=== PATIENT | female | born 1960 | race Caucasian/White ===

== ENCOUNTER 2023-06-06 06:08 | Day surgery (SDC) | payer BC ==
[~2023-06-06] VITALS: Ht 160 cm; Wt 72.5 kg
[~2023-06-06 06:08] MED LIST: ALBU90OI INH; QVAR REDIHALE10.6 G2 INH
--- NOTE | 2023-06-06 07:35 | NUR ---
06/06/[address] TO PERFORM BLOCK ON R SIDE. PT EDUCATED BY DR QUINONEZ ON THE BLOCK AND ANESTHESIA. CONSENTS ARE SIGNED. TIME OUT PERFORMED.
--- NOTE | 2023-06-06 10:17 | NUR ---
06/06/23 1017 DANIELLE PHAN ICE PACK GIVEN BEHIND NECK FOR HEADACHE. PT STATES SHE CAME IN W/ A HEADACHE AND THE NAUSEA IS FROM A GAS SMELL SHE KEEPS SMELLING MAKING HER NAUSEATED.
[2023-06-06 11:38] VITALS: BP 125/67
== END 2023-06-06 12:36 | disposition home or self-care (01) ==
LOC: ORSCSDS 06:08
PROVIDERS: Orthopaedic Surgery
PROC: 0RNJ4ZZ Release Right Shoulder Joint, Percutaneous Endoscopic Approach (ICD-10-PCS; principal; 2023-06-06 07:30)
DX: M75.41 Impingement syndrome of right shoulder (principal); M75.111 Incomplete rotator cuff tear or rupture of right shoulder, not specified as traumatic; J44.9 Chronic obstructive pulmonary disease, unspecified; Z87.891 Personal history of nicotine dependence; Z79.899 Other long term (current) drug therapy
CPT/HCPCS: A9270; C1713; J0171; J0690; J1100; J1790; J2250; J2405; J2704; J2765; J3010; J7120

== ENCOUNTER → 2025-05-15 | Outpatient (CLI) | payer OTHER ==
[2025-05-15 16:55] LABS: BASOPHILS ABSOLUTE AUTO 0.05 K/mm3 (0.00-0.23); BASOPHILS PERCENT AUTO 1 % (0-2); EOSINOPHILS ABSOLUTE AUTO 0.35 K/mm3 (0.00-0.68); EOSINOPHILS PERCENT AUTO 4 % (0-6); Hematocrit 34.8 % (33.0-51.0); Hemoglobin 11.0 g/dL (11.5-16.0); IMMATURE GRAN ABSOLUTE AUTO 0.05 K/mm3 (0.00-0.10); IMMATURE GRAN PERCENT AUTO 1 % (0-1); LYMPHOCYTES ABSOLUTE AUTO 0.72 K/mm3 (0.84-5.20); LYMPHOCYTES PERCENT AUTO 9 % (21-46); MONOCYTES ABSOLUTE AUTO 0.61 K/mm3 (0.16-1.47); MONOCYTES PERCENT AUTO 7 % (4-13); Mean Corpuscular HGB Conc 31.6 g/dL (31.5-36.5); Mean Corpuscular Volume 86 fL (80-100); NEUTROPHILS ABSOLUTE AUTO 6.69 K/mm3 (1.96-9.15); NEUTROPHILS PERCENT AUTO 79 % (41-73); NRBC ABSOLUTE 0.00 K/mm3 (0.00-0.02); NRBC Auto 0.0 /100 WBC (0.0-0.2); Platelet Count 415 K/mm3 (150-400); RDW Coefficient Variation 13.2 % (11.7-14.2); RDW Standard Deviation 41.7 fL (35.1-46.3)
[2025-05-15 17:13] LABS: Alanine Aminotransfer (ALT/SGP 20.0 U/L (12-78); Albumin, Blood 2.5 g/dL (3.4-5.0); Albumin/Globulin Ratio 0.7 (0.8-1.8); Anion Gap 9.0 mmol/L (3-11); Aspartate Aminotrans (AST/SGOT 24.0 U/L (12-37); Bilirubin, Total 0.2 mg/dL (0.1-1.0); Blood Urea Nitrogen 15.0 mg/dL (8-24); CO2, Blood 30.0 mmol/L (21-32); Calcium, Blood 8.5 mg/dL (8.5-10.1); Chloride, Blood 104.0 mmol/L (98-108); Creatinine, Blood 0.62 mg/dL (0.40-1.00); Globulin, Blood 3.7 g/dL (2.2-4.0); Glucose, Blood 96.0 mg/dL (70-99); Potassium, Blood 3.7 mmol/L (3.5-5.5); Sodium, Blood 139.0 mmol/L (136-145); Total Protein, Blood 6.2 g/dL (6.4-8.2)
== END ==
LOC: LAB SHORT 16:51 → LAB 16:51
DX: M79.89 Other specified soft tissue disorders (principal)
CPT/HCPCS: 80053; 83880; 85025

== ENCOUNTER 2025-05-31 09:35 | Emergency (ER) | payer OTHER ==
[~2025-05-31] VITALS: Ht 160 cm; Wt 72.1 kg
[2025-05-31 11:42] LABS: BASOPHILS ABSOLUTE AUTO 0.07 K/mm3 (0.00-0.23); BASOPHILS PERCENT AUTO 1 % (0-2); EOSINOPHILS ABSOLUTE AUTO 0.23 K/mm3 (0.00-0.68); EOSINOPHILS PERCENT AUTO 2 % (0-6); Hematocrit 38.6 % (33.0-51.0); Hemoglobin 12.0 g/dL (11.5-16.0); IMMATURE GRAN ABSOLUTE AUTO 0.20 K/mm3 (0.00-0.10); IMMATURE GRAN PERCENT AUTO 1 % (0-1); LYMPHOCYTES ABSOLUTE AUTO 0.47 K/mm3 (0.84-5.20); LYMPHOCYTES PERCENT AUTO 3 % (21-46); MONOCYTES ABSOLUTE AUTO 0.59 K/mm3 (0.16-1.47); MONOCYTES PERCENT AUTO 4 % (4-13); Mean Corpuscular HGB Conc 31.1 g/dL (31.5-36.5); Mean Corpuscular Volume 87 fL (80-100); NEUTROPHILS ABSOLUTE AUTO 13.58 K/mm3 (1.96-9.15); NEUTROPHILS PERCENT AUTO 90 % (41-73); NRBC ABSOLUTE 0.00 K/mm3 (0.00-0.02); NRBC Auto 0.0 /100 WBC (0.0-0.2); Platelet Count 601 K/mm3 (150-400); RDW Coefficient Variation 13.8 % (11.7-14.2); RDW Standard Deviation 43.9 fL (35.1-46.3)
[2025-05-31 12:01] LABS: C-REACTIVE PROTEIN, EXT RANGE 7.91 mg/dL (0.000-0.300)
[2025-05-31 12:05] LABS: Alanine Aminotransfer (ALT/SGP 56.0 U/L (12-78); Albumin, Blood 2.7 g/dL (3.4-5.0); Albumin/Globulin Ratio 0.7 (0.8-1.8); Anion Gap 8.0 mmol/L (3-11); Aspartate Aminotrans (AST/SGOT 53.0 U/L (12-37); Bilirubin, Total 0.3 mg/dL (0.1-1.0); Blood Urea Nitrogen 21.0 mg/dL (8-24); CO2, Blood 30.0 mmol/L (21-32); Calcium, Blood 8.7 mg/dL (8.5-10.1); Chloride, Blood 103.0 mmol/L (98-108); Creatinine, Blood 0.75 mg/dL (0.40-1.00); Globulin, Blood 3.7 g/dL (2.2-4.0); Glucose, Blood 105.0 mg/dL (70-99); Potassium, Blood 4.2 mmol/L (3.5-5.5); Sodium, Blood 137.0 mmol/L (136-145); Total Protein, Blood 6.4 g/dL (6.4-8.2)
[2025-05-31 18:37] LABS: Automated CSF RBC Count 0.002 M/mm3 (0-0); Automated CSF WBC Count 0.004 K/mm3 (0-5); RBC Count, CSF 2000 /mm3 (0-0); WBC Count, CSF 4 /mm3 (0-5)
[2025-05-31 18:47] LABS: Automated CSF WBC Count 0.001 K/mm3 (0-5)
[2025-05-31 18:54] LABS: WBC Count, CSF 1 /mm3 (0-5)
[2025-05-31 19:06] LABS: RBC Count, CSF 21 /mm3 (0-0)
[2025-05-31 20:55] LABS: Haemophilus Influenza Not Detected (NOT DETECT)
[2025-06-01 18:05] VITALS: BP 148/71
[2025-06-03 15:50] LABS: HIV 1,2 COMBO ANTIGEN/ANTIBODY Negative (Negative)
== END 2025-06-01 18:18 | disposition home or self-care (01) ==
LOC: ER 09:35
PROVIDERS: Emergency Medicine
DX: R53.1 Weakness (principal); R44.9 Unspecified symptoms and signs involving general sensations and perceptions; J45.909 Unspecified asthma, uncomplicated; Z88.5 Allergy status to narcotic agent; F17.210 Nicotine dependence, cigarettes, uncomplicated
CPT/HCPCS: 62270; 70450; 72156; 72157; 80053; 82550; 82945; 84157; 85025; 86140; 87070; 87205; 87389; 87483; 89051; 93971; 97162; 97530; 99285-25; A9270; A9579

== ENCOUNTER 2025-06-30 12:24 | Inpatient (IN) | payer OTHER ==
[~2025-06-30] VITALS: Ht 160 cm; Wt 76.7 kg
[2025-06-30] MEDS ORDERED: LORazepam 2 MG/ML 1ML Injection IV ONE (13:05)
[2025-06-30] MEDS ORDERED: NS 1,000 ML IV SCH ×2 (13:20→18:00)
[2025-06-30] MEDS ORDERED: Ondansetron HCl 2 MG / ML 2ML Vial IV ONE (13:25)
[2025-06-30 13:52] LABS: BASOPHILS ABSOLUTE AUTO 0.04 K/mm3 (0.00-0.23); BASOPHILS PERCENT AUTO 0 % (0-2); EOSINOPHILS ABSOLUTE AUTO 0.07 K/mm3 (0.00-0.68); EOSINOPHILS PERCENT AUTO 0 % (0-6); Hematocrit 39.4 % (33.0-51.0); Hemoglobin 12.6 g/dL (11.5-16.0); IMMATURE GRAN ABSOLUTE AUTO 0.27 K/mm3 (0.00-0.10); IMMATURE GRAN PERCENT AUTO 1 % (0-1); LYMPHOCYTES ABSOLUTE AUTO 0.81 K/mm3 (0.84-5.20); LYMPHOCYTES PERCENT AUTO 4 % (21-46); MONOCYTES ABSOLUTE AUTO 0.73 K/mm3 (0.16-1.47); MONOCYTES PERCENT AUTO 4 % (4-13); Mean Corpuscular HGB Conc 32.0 g/dL (31.5-36.5); Mean Corpuscular Volume 78 fL (80-100); NEUTROPHILS ABSOLUTE AUTO 17.58 K/mm3 (1.96-9.15); NEUTROPHILS PERCENT AUTO 90 % (41-73); NRBC ABSOLUTE 0.00 K/mm3 (0.00-0.02); NRBC Auto 0.0 /100 WBC (0.0-0.2); Platelet Count 403 K/mm3 (150-400); RDW Coefficient Variation 15.2 % (11.7-14.2); RDW Standard Deviation 42.5 fL (35.1-46.3)
[2025-06-30 13:57] LABS: Alanine Aminotransfer (ALT/SGP 21.0 U/L (12-78); Albumin, Blood 2.6 g/dL (3.4-5.0); Albumin/Globulin Ratio 0.8 (0.8-1.8); Anion Gap 9.0 mmol/L (3-11); Aspartate Aminotrans (AST/SGOT 20.0 U/L (12-37); Bilirubin, Total 0.6 mg/dL (0.1-1.0); Blood Urea Nitrogen 29.0 mg/dL (8-24); CO2, Blood 30.0 mmol/L (21-32); Calcium, Blood 8.8 mg/dL (8.5-10.1); Chloride, Blood 89.0 mmol/L (98-108); Creatinine, Blood 1.15 mg/dL (0.40-1.00); Globulin, Blood 3.3 g/dL (2.2-4.0); Glucose, Blood 140.0 mg/dL (70-99); Magnesium, Blood 2.2 mg/dL (1.6-2.4); Potassium, Blood 3.4 mmol/L (3.5-5.5); Sodium, Blood 125.0 mmol/L (136-145); Total Protein, Blood 5.9 g/dL (6.4-8.2)
[2025-06-30 13:57] LABS: Source, Urine Clean Catch
[2025-06-30 13:58] LABS: Prothrombin Time Results 11.4 Sec (9.7-11.5)
[2025-06-30] MEDS ORDERED: Ketorolac Tromethamine 15mg Vial IV ONE (14:05)
[2025-06-30 14:17] LABS: Bilirubin, Urine Neg (Neg); Color, Urine Yellow (P-Yellow); Glucose Qualitative, Urine Neg (Neg); Ketones, Urine 1+ (Neg); Leukocyte Esterase, Urine Neg (Neg); Protein, Urine 3+ (Neg); Specific Gravity, Urine 1.015 (1.003-1.022); Urobilinogen, Urine NORM (Normal)
[2025-06-30 14:28] LABS: Red Blood Cells, Urine 0-2 /hpf (0-2); White Blood Cells, Urine 0-2 /hpf (0-5)
[2025-06-30 14:45] LABS: Influenza A, PCR NEGATIVE (NEGATIVE); Influenza B, PCR NEGATIVE (NEGATIVE); Resp Syncytial Virus, PCR NEGATIVE (NEGATIVE); SARS-Cov-2 (COVID-19) PCR, MMC NEGATIVE (NEGATIVE)
[2025-06-30] MEDS ORDERED: HYDROCODONE-AC1 EA19 PO (14:50)
[2025-06-30] MEDS ORDERED: PREGABALIN50 MG PO (14:50)
[2025-06-30] MEDS ORDERED: FLUTICASONE-SAL12 GM (14:50)
[2025-06-30] MEDS ORDERED: NAPR220 PO (14:51)
[2025-06-30] MEDS ORDERED: [UNRECOGNIZED DRUG - OTHER] (14:52)
[2025-06-30] MEDS ORDERED: [UNRECOGNIZED DRUG - OTHER] (14:53)
[2025-06-30] MEDS ORDERED: Labetalol HCL 5 MG/ML 4ML Injection (Single Dose) IV ONE (16:10)
[2025-06-30 17:56] VITALS: BP 151/62
[2025-06-30] MEDS ORDERED: Polyethylene Glycol 3350 17 gm PO PRN (18:20)
[2025-06-30] MEDS ORDERED: ADVAIR HFA 230-28 GM INH (18:21)
[2025-06-30] MEDS ORDERED: HYDROcodone 5-APAP 325 TAB PO PRN (18:30)
[2025-06-30] MEDS ORDERED: Formoterol/Mometasone MDI 5/100 mcg 13 GM INH SCH (18:35)
[2025-06-30] MEDS ORDERED: Albuterol HFA200 ACT/6.7 GM INH INH PRN (18:50)
--- NOTE | 2025-06-30 19:11 | NUR ---
PT ADMITTED TO UNIT FROM ER. PT TRANSFERED TO HOSPITAL BED FROM [facility] VIA SLIDE SHEET. PT AWAKE AND ALERT, ORIENTED x3 WITH MINOR FORGETFULNESS. PT REPORTS N/T THROUGHOUT BODY, WEAKNESS T/O BUT WORSE ON R SIDE. ADMISSION COMPLETED. 2 RN SKIN CHECK COMPLETED. ORIENTED FAMILY AND PT TO CALL SYSTEM. EDUCATED RE NO SMOKING POLICY. NOTIFIED PROVIDER OF ARRIVAL TO MED FLOOR AND PT REPORTING 10/10 HEADACHE. MED REC COMPLETED - HYDROCODONE ADMINISTERED FOR HEADACHE AND GENERALIZED PAIN. HEATING PAD PROVIDED AND FAN. NS RUNNING 100 ML/HR. PT CURRENTLY RESTING PEACEFULLY IN BED WITH CALL LIGHT IN REACH, BED ALARM ON, AND FAMILY AT BEDSIDE. REPORT GIVEN TO NOC SHIFT RN.
[2025-06-30] MEDS ORDERED: Metoclopramide HCl 5MG / ML 2ML Vial IV PRN (19:50)
[2025-06-30 20:23] VITALS: BP 158/93
--- NOTE | 2025-07-01 05:14 | NUR ---
SHIFT SUMMARY: PT AOX2-3 WITH SOME CONFUSION AND SLUGGISHNESS. IS ABLE TO FOLLOW COMMANDS AND IS COOPERATIVE IN CARE. HAS GROWN MORE ALERT AND MORE EXPRESSIVE SINCE BEGINNING OF SHIFT. PT STARTED SHIFT WITH A LOT OF PAIN AND A LEG CRAMP. WELL VOMITING. PROVIDER NOTIFIED, MEDICATED PER EMR. PT IS TOLERATING MEDICATIONS WELL. IN BED RESTING, BED IN LOWEST POSITION, CALL LIGHT IN REACH. CONTINUING CARE.
[2025-07-01 05:15] VITALS: BP 138/89
[2025-07-01 06:59] LABS: Hematocrit 36.8 % (33.0-51.0); Hemoglobin 11.6 g/dL (11.5-16.0); Mean Corpuscular HGB Conc 31.5 g/dL (31.5-36.5); Mean Corpuscular Volume 79 fL (80-100); NRBC ABSOLUTE 0.00 K/mm3 (0.00-0.02); NRBC Auto 0.0 /100 WBC (0.0-0.2); Platelet Count 315 K/mm3 (150-400); RDW Coefficient Variation 15.6 % (11.7-14.2); RDW Standard Deviation 44.6 fL (35.1-46.3)
[2025-07-01 07:20] LABS: Alanine Aminotransfer (ALT/SGP 16.0 U/L (12-78); Albumin, Blood 2.1 g/dL (3.4-5.0); Albumin/Globulin Ratio 0.7 (0.8-1.8); Anion Gap 11.0 mmol/L (3-11); Aspartate Aminotrans (AST/SGOT 17.0 U/L (12-37); Bilirubin, Total 0.5 mg/dL (0.1-1.0); Blood Urea Nitrogen 26.0 mg/dL (8-24); CO2, Blood 27.0 mmol/L (21-32); Calcium, Blood 8.2 mg/dL (8.5-10.1); Chloride, Blood 95.0 mmol/L (98-108); Creatinine, Blood 1.24 mg/dL (0.40-1.00); Globulin, Blood 3.0 g/dL (2.2-4.0); Glucose, Blood 103.0 mg/dL (70-99); Potassium, Blood 2.8 mmol/L (3.5-5.5); Sodium, Blood 130.0 mmol/L (136-145); Total Protein, Blood 5.1 g/dL (6.4-8.2)
[2025-07-01 07:38] VITALS: BP 152/90
[2025-07-01] MEDS ORDERED: Enoxaparin 40 MG/0.4 ML SYR SC SCH (09:00)
--- NOTE | 2025-07-01 14:04 | NUR ---
PHYSICIAN NOTIFIED UNABLE TO GET AHOLD OF RESIDENT; THEREFORE, THIS RN CONTACTED ATTENDING. NOTIFIED ORDERS NEEDED PRIOR TO MRI FOR CLAUSTROPHOBIA - PROVIDER PUTTING IN ORDER. RN ALSO INFORMED DOUBLE LABS ORDERED - ATTENDING OK'D THIS RN TO CANCEL DUPLICATE LABS AND ORDER ST EVALUATION FOR IRU REFERRAL.
[2025-07-01 15:35] LABS: RA, SEMIQUANTITATIVE 64 IU/ml (<8); Rheumatoid Factor, Serum Positive (Negative)
[2025-07-01 15:36] LABS: RPR SCREEN with Reflex Non-reactive (Nonreactive)
[2025-07-01 15:49] VITALS: BP 176/87
[2025-07-01 15:51] VITALS: BP 166/83
--- NOTE | 2025-07-01 16:31 | NUR ---
PHYSICIAN NOTIFIED RN NOTIFIED DR. BLANK RE PT HR SUSTAINING 120-130'S AT REST. PT DENIES ANY OTHER SYMPTOMS - NO CHEST PAIN, DIZZINESS, SOB. BP REMAINS ELEVATED WELL. PER PROVIDER HE WILL ENTER ORDERS FOR TELE AND COME SPEAK WITH PT AND FAMILY REGARDING MRI RESULTS. PT CURRENTLY SLEEPING PEACEFULLY WITH BED IN LOWEST POSITION AND CALL LIGHT WITHIN REACH. DAUGHTER AT BEDSIDE.
[2025-07-01] MEDS ORDERED: Metoprolol Tartrate 1 MG/ML 5 ML VIAL IV PRN (16:45)
--- NOTE | 2025-07-01 16:50 | NUR ---
PER DR. FELI LYONS LOPRESSOR INJECTION ORDERED BY RESIDENT. TELE MONITORING AT THIS TIME ONLY. IF PT REMAINS SINUS TACHYCARDIA NO EKG NECESSARY, IF A P SUPERVISOR REPORTS CHANGES IN RHYTHM TO COMPLETE EKG.
[2025-07-01] MEDS ORDERED: Flumazenil 0.1 MG / ML 5ML Vial IV ONE (18:26)
[2025-07-01] MEDS ORDERED: Phenylephrine HCl 100 MCG/ML-NS 10MLSYR (1MG/10ML) IV ONE (18:26)
--- NOTE | 2025-07-01 18:39 | NUR ---
SHIFT SUMMARY NO ACUTE CHANGES, A/Ox4, WITH WEAKNESS REMAINING IN ALL EXTREMITIES BUT WORSE ON R SIDE. MRI COMPLETED. PROVIDER DISCUSSED RESULTS WITH PT AND PT DAUGHTER. IMAGING FAXED TO [facility] BY [employer] TE[employer]ER PER PROVIDER REQUEST. GOOD APPETITE THROUGHOUT SHIFT. TREATED FOR PAIN X1 WITH GOOD RESULTS. FLUIDS COMPLETED AND POTASSIUM INFUSION ALSO COMPLETED. PT CURRENTLY USING BSC WITH ASSISTANCE FROM SHUTDOWN PLANNER AND DAUGHTER PRESENT IN ROOM.
[2025-07-01 20:11] VITALS: BP 153/90
[2025-07-02 04:21] VITALS: BP 166/78
--- NOTE | 2025-07-02 05:19 | NUR ---
SHIFT SUMMARY: PT AOX3-4 CALLS APPROPRIATELY AND ABLE TO MAKE NEEDS KNOWN. STAND PIVOT TO BSC, NEEDS 2PA. NO COMPLAINTS OF PAIN OR CRAMPS THIS EVENING. STILL VERY WEAK AND HAS ISSUES WITH COORDINATION. TOLERATING MEDICATIONS WELL. NO ACUTE OVERNIGHT EVENTS. PT IN BED RESTING, BED IN LOWEST POSITION, CALL LIGHT IN REACH. CONTINUING CARE.
[2025-07-02 07:26] VITALS: BP 166/75
[2025-07-02 07:27] LABS: Hematocrit 34.7 % (33.0-51.0); Hemoglobin 11.5 g/dL (11.5-16.0); Mean Corpuscular HGB Conc 33.1 g/dL (31.5-36.5); Mean Corpuscular Volume 78 fL (80-100); NRBC ABSOLUTE 0.00 K/mm3 (0.00-0.02); NRBC Auto 0.0 /100 WBC (0.0-0.2); Platelet Count 328 K/mm3 (150-400); RDW Coefficient Variation 15.8 % (11.7-14.2); RDW Standard Deviation 44.1 fL (35.1-46.3)
[2025-07-02 07:51] LABS: Albumin, Blood 2.0 g/dL (3.4-5.0); Anion Gap 9 mmol/L (3-11); Blood Urea Nitrogen 30 mg/dL (8-24); CO2, Blood 25 mmol/L (21-32); Calcium, Blood 7.8 mg/dL (8.5-10.1); Chloride, Blood 97 mmol/L (98-108); Creatinine, Blood 1.38 mg/dL (0.40-1.00); Glucose, Blood 132 mg/dL (70-99); Phosphorus, Blood 3.3 mg/dL (2.5-4.9); Sodium, Blood 126 mmol/L (136-145)
[2025-07-02 07:57] LABS: Potassium, Blood 4.9 mmol/L (3.5-5.5)
[2025-07-02] MEDS ORDERED: Metoprolol Tartrate 1 MG/ML 5 ML VIAL IV PRN (08:00)
[2025-07-02 10:42] VITALS: BP 124/55
[2025-07-02] MEDS ORDERED: LORazepam 2 MG/ML 1ML Injection IV ONE (13:40)
[2025-07-02] MEDS ORDERED: FentaNYL Citrate 50 MCG/ML 2 ML Injection IV ONE (14:00)
[2025-07-02] MEDS ORDERED: FentaNYL Citrate 50 MCG/ML 2 ML Injection IV PRN (14:00)
--- NOTE | 2025-07-02 15:09 | NUR ---
THIS MORNING AFTER BREAKFAST PT WAS UP IN CHAIR AND DOING ORAL CARE WHEN NELSON VALENZUELA STATED SHE BECAME LIMP THROUGHOUT AND NOT VERBALLY RESPONSIVE. TOOK 3 PEOPLE TO GET PT BACK INTO BED, PHYSICIAN WAS AT BEDSIDE WITH CHARGE DIVINA WHITE I WAS IN ANOTHER ROOM. ONCE ABLE TO GO INTO ROOM PT WAS BACK IIN BED AND HOB ELEVATED SLIGHTLY. PT PUPILS WERE STILL EQUAL AND REACTIVE TO LIGHT. LIMBS TTHROUGHOUT WERE ALL EQUALLY WEAK AND SHE WAS NOT ABLE TO LIFT AGAINST GRAVITY. CAMPAIGN SPECIALIST CAME BY TO COMPLETE TEST. THEN REPEAT HEAD CT WAS COMPLETED, DR EDMOND NOTIFIED WHEN IMAGING RESULTS WERE IN, STATED HE WOULD BE BY TO SPEAK WITH FAMILY AT BEDSIDE.
[2025-07-02 15:13] LABS: COMPLEMENT COMPONENT 3 144 mg/dL (90-180); COMPLEMENT COMPONENT 4 3 mg/dL (10-40)
[2025-07-02 16:07] VITALS: BP 118/70
--- NOTE | 2025-07-02 16:53 | NUR ---
PER DR. BARRERA WHEN THEY CONSULTED WITH NEURO HER CURRENT ANTIPLATELET REGIMEN OF BABY ASPIRIN AND LOVENOX IS SUFFICIENT AND TO ESCALATE NEEDED. ALSO NOTIFIED DR. BARRERA OF PATIENTS PAIN/GENERALIZED UNCOMFORTABLNESS AND SHE WAS GOING TO ADD SOME TRAMADOL PRN. AWAITING ORDERS.
[2025-07-02 17:10] LABS: HOMOCYSTEINE,TOTAL 14 umol/L (0-15)
[2025-07-02 17:14] LABS: ALDOLASE 6.9 U/L (1.2-7.6)
--- NOTE | 2025-07-02 18:11 | NUR ---
NOTIFIED DR. BARRERA THIS EVENING THAT FAMILY WAS ASKING FOR RESULTS OF ECHO. DR. BARRERA STATED DR. PARKS WOULD BE UP TO DISCUSS RESULTS. DR. PARKS DID COME UP AND DISCUSS ECHO AND PRIOR IMAGING RESULTS WITH FAMILY THEY SEEMED TO STILL HAVE QUESTIONS.
[2025-07-02] MEDS ORDERED: HYDROcodone 5-APAP 325 TAB PO ONE (18:15)
[2025-07-02 19:48] VITALS: BP 138/65
[2025-07-02 23:06] LABS: ANTI-NUCLEAR AB ANA,IGG ELISA None Detected (None Detected)
[2025-07-02 23:59] VITALS: BP 118/67
[2025-07-03 03:32] VITALS: BP 100/59
--- NOTE | 2025-07-03 05:05 | NUR ---
SHIFT SUMMARY: PT AOX4 THOUGH STILL SLUGGISH AND SOFT SPEECH. CALLS APPROPRIATELY AND ABLE TO MAKE NEEDS KNOWN. SEEMS WEAKER AND LESS COORDINATED THAN THE DAY PRIOR. HAS HAD SOME SMALL LOOSE STOOLS BUT IS STILL CONTINENT. PT COMPLAINING OF WORSENING NERVE PAIN IN HER HANDS AND FEET. WELL MULTIPLE CRAMPS IN HER LEG. MEDICATED PER EMR. TOLERATING MEDICATIONS WELL. PT IS MOTIVATED TO GET BETTER BUT HER AND FAMILY ARE VERY ANXIOUS OVER PROGNOSIS. PT IN BED RESTING, BED IN LOWEST POSITION, CALL LIGHT IN REACH. CONTINUING CARE.
[2025-07-03 06:23] LABS: Hematocrit 31.0 % (33.0-51.0); Hemoglobin 10.0 g/dL (11.5-16.0); Mean Corpuscular HGB Conc 32.3 g/dL (31.5-36.5); Mean Corpuscular Volume 79 fL (80-100); NRBC ABSOLUTE 0.00 K/mm3 (0.00-0.02); NRBC Auto 0.0 /100 WBC (0.0-0.2); Platelet Count 360 K/mm3 (150-400); RDW Coefficient Variation 15.9 % (11.7-14.2); RDW Standard Deviation 45.7 fL (35.1-46.3)
[2025-07-03 07:03] LABS: Albumin, Blood 1.8 g/dL (3.4-5.0); Anion Gap 12 mmol/L (3-11); Blood Urea Nitrogen 36 mg/dL (8-24); CHOL/HDL RATIO 2.9; CO2, Blood 22 mmol/L (21-32); Calcium, Blood 7.8 mg/dL (8.5-10.1); Chloride, Blood 96 mmol/L (98-108); Cholesterol 76 mg/dL (50-200); Creatinine, Blood 1.38 mg/dL (0.40-1.00); Glucose, Blood 125 mg/dL (70-99); HDL Cholesterol 26 mg/dL (>39); LDL/HDL RATIO 0.4; Low Density Lipoprotein Chol 10 mg/dL (0-110); Magnesium, Blood 2.1 mg/dL (1.6-2.4); Phosphorus, Blood 4.0 mg/dL (2.5-4.9); Potassium, Blood 4.1 mmol/L (3.5-5.5); Sodium, Blood 126 mmol/L (136-145); Triglycerides 202 mg/dL (30-160); Very Low Density Lipoprot Chol 40 mg/dL (6-32)
[2025-07-03 07:35] VITALS: BP 95/62
[2025-07-03 09:37] VITALS: BP 116/59
--- NOTE | 2025-07-03 13:44 | NUR ---
BLADDER SCAN COMPLETED VOLUME SLIGHTLY GREATER THAN 800. DR LAWTON NOTIFIED AT 1345 AND ORDERED TO BLADDER SCAN Q6 AND TO STRAIGHT CATH FOR VOLUME GREATER THAN 300.
[2025-07-03 15:22] LABS: HOMOCYSTEINE,TOTAL 14 umol/L (0-15)
[2025-07-03] MEDS ORDERED: Lidocaine 2% Viscous Soln 20 ML,Nystatin 100,000 Unit/ml Susp 20 ML,Mag Hydrox/Al Hydro... MT PRN (17:00)
[2025-07-03 17:38] VITALS: BP 106/54
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
[2025-07-03] MEDS ORDERED: Lidocaine 2% Viscous Soln 20 ML,Nystatin 100,000 Unit/ml Susp 20 ML,Mag Hydrox/Al Hydro... MT SCH (21:00)
[2025-07-03 21:28] VITALS: BP 105/60
[2025-07-03 23:34] VITALS: BP 102/50
[2025-07-04 04:05] VITALS: BP 103/60
--- NOTE | 2025-07-04 05:30 | NUR ---
PT HAS SLEPT T/O THIS SHIFT WITH DAUGHTER AT BEDSIDE. NO ACUTE CHANGES NOTED AT THIS TIME.
[2025-07-04 05:39] LABS: Hematocrit 28.0 % (33.0-51.0); Hemoglobin 8.9 g/dL (11.5-16.0); Mean Corpuscular HGB Conc 31.8 g/dL (31.5-36.5); Mean Corpuscular Volume 80 fL (80-100); NRBC ABSOLUTE 0.00 K/mm3 (0.00-0.02); NRBC Auto 0.0 /100 WBC (0.0-0.2); Platelet Count 406 K/mm3 (150-400); RDW Coefficient Variation 16.3 % (11.7-14.2); RDW Standard Deviation 46.5 fL (35.1-46.3)
[2025-07-04 06:02] LABS: Albumin, Blood 1.7 g/dL (3.4-5.0); Anion Gap 10 mmol/L (3-11); Blood Urea Nitrogen 51 mg/dL (8-24); CO2, Blood 25 mmol/L (21-32); Calcium, Blood 7.7 mg/dL (8.5-10.1); Chloride, Blood 96 mmol/L (98-108); Creatinine, Blood 1.46 mg/dL (0.40-1.00); Glucose, Blood 110 mg/dL (70-99); Magnesium, Blood 2.2 mg/dL (1.6-2.4); Phosphorus, Blood 4.1 mg/dL (2.5-4.9); Potassium, Blood 4.6 mmol/L (3.5-5.5); Sodium, Blood 126 mmol/L (136-145)
[2025-07-04 07:24] VITALS: BP 106/61
[2025-07-04] MEDS ORDERED: NS 1,000 ML IV SCH (08:00)
[2025-07-04 11:28] VITALS: BP 119/72
--- NOTE | 2025-07-04 13:12 | NUR ---
1310 PER PRIMARY CARE RN, TELE MX HAD REPORTED 12 SEC RUN OF SVT'S AT 160. DR WOLFF NOTIFIED; NO NEW ORDERS. PT ASYMPTOMATIC.
--- NOTE | 2025-07-04 13:20 | NUR ---
1320 TELE MX CALLED TO REPORT PT CONVERTED FROM SR TO FLUTTER WITH RATE 104'S TO 160. DR WOLFF NOTIFIED AGAIN; "WILL MAKE SOME ADJUSTMENTS".
[2025-07-04] MEDS ORDERED: Metoprolol Tartrate 1 MG/ML 5 ML VIAL IV ONE (13:50)
[2025-07-04] MEDS ORDERED: Metoprolol Tartrate 1 MG/ML 5 ML VIAL IV PRN (13:50)
[2025-07-04 14:39] VITALS: BP 117/68
[2025-07-04 16:38] LABS: Anion Gap 10.0 mmol/L (3-11); Blood Urea Nitrogen 60.0 mg/dL (8-24); CO2, Blood 25.0 mmol/L (21-32); Calcium, Blood 8.1 mg/dL (8.5-10.1); Chloride, Blood 98.0 mmol/L (98-108); Creatinine, Blood 1.47 mg/dL (0.40-1.00); Ferritin, Serum 281.0 ng/mL (8-252); Glucose, Blood 117.0 mg/dL (70-99); Potassium, Blood 4.7 mmol/L (3.5-5.5); Sodium, Blood 128.0 mmol/L (136-145); Total Iron Binding Capacity 203.0 ug/dL (250-450)
[2025-07-04] MEDS ORDERED: HYDROmorphone HCl/Pf 1MG SYR IV PRN (18:00)
[2025-07-04] MEDS ORDERED: FentaNYL Citrate 50 MCG/ML 2 ML Injection IV ONE (18:45)
--- NOTE | 2025-07-04 18:54 | NUR ---
SHIFT SUMMARY PATIENT RESPONDS TO VERBAL STIMULI, UNABLE TO ANSWER QUESTIONS OR FOLLOW COMMANDS, SEE NIH FOR FURTHER STROKE EVALUATION. VSS, TELE IN PLACE, SINUS RHYTHM 90'S. ABDOMEN IS SOFT UPON PALPATION. RIVERO CATHETER IN PLACE, PATENT AND DRAINING TO GRAVITY. PATIENT SHOWING SIGNS OF SIGNIFICANT PAIN THIS SHIFT, GRIMACING AND CRYING OUT, PROVIDER CONTACTED, HYDROMORPHONE ORDERED. PER PATIENT FAMILY MEMBER, PATIENT ALLERGIC TO MORPHINE STATING SHE DEVELOPS HIVES AND HAS A HARD TIME BREATHING. PHARMACY CONTACTED REGARDING POTENTIAL ALTERNATIVES, FENTANYL OR TORADOL RECOMMENDED. DR. CLAYTON CONTACTED, NEW ORDERS RECEIVED, HYDROMORPHONE DC'd, FENTANYL ORDERS ADJUSTED. PATIENT IS UP IN BED, PILLOWS AND WEDGES APPLIED FOR OFFLOADING, PATIENT FAMILY AT BASELINE, EDUCATED ON USE OF CALL LIGHT.
[2025-07-04 19:40] VITALS: BP 105/59
[2025-07-04] MEDS ORDERED: Enoxaparin 80 MG/0.8 ML SYR SC SCH (21:00)
[2025-07-04] MEDS ORDERED: FentaNYL Citrate 50 MCG/ML 2 ML Injection IV SCH (23:00)
[2025-07-05] VITALS (33 sets, daily range): BP systolic 75–127; BP diastolic 28–78
[2025-07-05 03:44] LABS: Hematocrit 24.6 % (33.0-51.0); Hemoglobin 7.9 g/dL (11.5-16.0); Mean Corpuscular HGB Conc 32.1 g/dL (31.5-36.5); Mean Corpuscular Volume 81 fL (80-100); NRBC ABSOLUTE 0.00 K/mm3 (0.00-0.02); NRBC Auto 0.0 /100 WBC (0.0-0.2); Platelet Count 421 K/mm3 (150-400); RDW Coefficient Variation 16.5 % (11.7-14.2); RDW Standard Deviation 48.5 fL (35.1-46.3)
[2025-07-05 04:12] LABS: Albumin, Blood 1.8 g/dL (3.4-5.0); Anion Gap 9 mmol/L (3-11); Blood Urea Nitrogen 65 mg/dL (8-24); CO2, Blood 26 mmol/L (21-32); Calcium, Blood 7.7 mg/dL (8.5-10.1); Chloride, Blood 100 mmol/L (98-108); Creatinine, Blood 1.64 mg/dL (0.40-1.00); Glucose, Blood 97 mg/dL (70-99); Magnesium, Blood 2.3 mg/dL (1.6-2.4); Phosphorus, Blood 4.6 mg/dL (2.5-4.9); Potassium, Blood 4.5 mmol/L (3.5-5.5); Sodium, Blood 130 mmol/L (136-145)
[2025-07-05 05:44] LABS: MMA S/P,VITAMIN B12 STATUS 0.34 umol/L (0.00-0.40)
--- NOTE | 2025-07-05 06:27 | NUR ---
SHIFT SUMMARY PT DAUGHTER AT BEDSIDE THIS SHIFT. PT OPENS EYES SPONTANEOUSLY. SHE ANSWERED SOME YES/NO QUESTIONS AT START OF SHIFT, NOW UNABLE TO ANSWER QUESTIONS OR FOLLOW COMMANDS. RIGHT SIDE DEFICIT. LIFT TO TRANSFER PER PHYSICAL THERAPY, TOLERATES REPOSITIONS WELL. SINUS TACH LOW 100s, ALL OTHER VSS. RIVERO CATH PATENT AND DRAINING TO GRAVITY. DAUGHTER REPORTS ALLERGY TO MORPHINE, TREATING CHRONIC PAIN WITH FENTANYL 25 Q4. UNABLE TO COMPLETE NIH AT START OF SHIFT DUE TO RECENT FENTANYL DOSE. WILL COMPLETE NIH WITH ONCOMING RN DURING REPORT. BED LOCKED IN LOWEST POSTITION, CALL LIGHT IN REACH.
[2025-07-05] MEDS ORDERED: NS 1,000 ML IV SCH (07:00)
[2025-07-05] MEDS ORDERED: Pantoprazole Sodium 40 MG Injection IV SCH (09:00)
[2025-07-05] MEDS ORDERED: Sod Ferric Gluc Complx/Sucrose 125 MG in NS 100 ML IV SCH (09:00)
[2025-07-05 09:17] LABS: Hematocrit 25.2 % (33.0-51.0); Hemoglobin 8.1 g/dL (11.5-16.0)
--- NOTE | 2025-07-05 09:59 | NUR ---
AM UPDATE: ASSUMED CARE OF PT AT 0730. ON ASSESSMENT WITH NOTABLE BILATERAL FACIAL DROOP. PT UNABLE TO COMMUNICATE NEEDS, UNABLE TO FOLLOW COMMANDS. LEFT GAZE NOTED. PT UNABLE TO MOVE BILATERAL LOWER EXTREMITIES. UNABLE TO MOVE R. SIDE EXTREMITY. COUGH AND GAG TESTED. PT WITH SLIGHT GAG, NO COUGH. MD UPDATED ON NEW FINDINGS, STAT CT IMAGING ORDERED. PT WITH NIH SCORE OF 27. BLACK STOOL NOTED IN ATTENDS. OCCULT STOOL ORDERED AND PENDING.
[2025-07-05 10:41] LABS: Stool Occult Blood Guaiac 1 Pos (Neg)
--- NOTE | 2025-07-05 12:14 | NUR ---
UPDATE: PT WAS ABLE TO RESOPND WITH YES/NO PRIOR, PT UNABLE TO VERBALLY RESPOND CURRENTLY. PT LEANING OVER TO THE LEFT WITH GAZE, DOES NOT TRACK WITH CONVERSATION. BLE AND RIGHT SIDE REMAIN FALCCID. PT ABLE TO LIFT LEFT ARM IN AIR, BEGINNING TO DO IT LESS OFTEN. BLOOD PRESSURE TRENDING DOWN MAP REMAINS >65, HR 100-110s. RR 31, AFEBRILE. OTHER VSS. DIGITAL MARKETING STRATEGIST CAME TO BEDSIDE AND DISCUSSED THE CURRENT SITUATION TO PATIENTS FAMILY. PT CLEARED FROM CARDIOLOGY STAND POINT. GI CONSTULTED AND SPOKE WITH PATIENTS FAMILY REGARDING EGD FOR GI BLEED. DAUGHTER STATED PATIENT WOULD WANT THE PROCEDURE DONE. PT CURRENTLY LYING IN BED, FAMILY AT BEDSIDE.
--- NOTE | 2025-07-05 14:29 | NUR ---
ROUNDED ON PT. DISCUSSED WITH CASE WITH PROVIDER AND BSRN. PATIENTS DAUGHTER AT BEDSIDE. DISCUSSED GOC, DISCUSSE CODE STATUS. DAUGHTER IS WANTING TO DO EVERYTHING AT THIS TIME. PROVIDED COPY OF HARD CHOICES FOR LOVING PEOPLE AND ENCOURAGED TO READ SECTIONS ABOUT CODE STATUS AND ARTIFICIAL FEEDINGS. UPDATED PROVIDER AND BSRN
[2025-07-05] MEDS ORDERED: Metoclopramide HCl 5MG / ML 2ML Vial IV ONE (14:55)
--- NOTE | 2025-07-05 15:27 | NUR ---
UPDATE: PT LEFT TO DAY SURGERY FOR EGD [facility]IA [facility] AT APPROX 1515. VSS. FAMILY NOTIFIED.
[2025-07-05] MEDS ORDERED: Midazolam HCL 1 MG/ML 5MLVIAL ONE (15:50)
[2025-07-05] MEDS ORDERED: Benzocaine Oral Spray 0.5ML UD ONE (15:51)
[2025-07-05] MEDS ORDERED: Flumazenil 0.1 MG / ML 5ML Vial ONE (16:15)
[2025-07-05 16:45] LABS: BASOPHILS ABSOLUTE AUTO 0.08 K/mm3 (0.00-0.23); BASOPHILS PERCENT AUTO 1 % (0-2); EOSINOPHILS ABSOLUTE AUTO 0.17 K/mm3 (0.00-0.68); EOSINOPHILS PERCENT AUTO 1 % (0-6); Hematocrit 22.8 % (33.0-51.0); Hemoglobin 7.1 g/dL (11.5-16.0); IMMATURE GRAN ABSOLUTE AUTO 0.61 K/mm3 (0.00-0.10); IMMATURE GRAN PERCENT AUTO 4 % (0-1); LYMPHOCYTES ABSOLUTE AUTO 1.39 K/mm3 (0.84-5.20); LYMPHOCYTES PERCENT AUTO 10 % (21-46); MONOCYTES ABSOLUTE AUTO 1.18 K/mm3 (0.16-1.47); MONOCYTES PERCENT AUTO 8 % (4-13); Mean Corpuscular HGB Conc 31.1 g/dL (31.5-36.5); Mean Corpuscular Volume 82 fL (80-100); NEUTROPHILS ABSOLUTE AUTO 10.96 K/mm3 (1.96-9.15); NEUTROPHILS PERCENT AUTO 76 % (41-73); NRBC ABSOLUTE 0.00 K/mm3 (0.00-0.02); NRBC Auto 0.0 /100 WBC (0.0-0.2); Platelet Count 443 K/mm3 (150-400); RDW Coefficient Variation 16.6 % (11.7-14.2); RDW Standard Deviation 49.5 fL (35.1-46.3)
[2025-07-05] MEDS ORDERED: NS 500 ML IV ONE (16:48)
--- NOTE | 2025-07-05 17:15 | NUR ---
BLOOD TRANSFUSION PT ARRIVED TO ICU 15 VIA GURNEY AT APPROXIMATELY 1715, ESCORTED BY OR STAFF. PT HAD 1 UNIT OF PRBC'S INFUSING AT GRAVITY TO PIV IN L FOOT WHICH WAS PLACED IN OR. PRE-INFUSION CHECKLIST HAD NOT BEEN ENTERED IN TRANSFUSION SECTION OF PT'S ELECTRONIC CHART, PAPER FORM c START OF INFUSION VS OBTAINED IN OR ARE ATTACHED TO PT'S CHART. VS OBTAINED IN ICU AT 1725 WERE: BP 112/58 MAP OF 72, HR 112 O2 SATURATION 97% ON 10 LPM O2 VIA OXIMASK, LS COARSE c EXPIRATORY WHEEZES. SEE NOC SHIFT RN NOTES FOR FURTHER TRANSFUSION DOCUMENTATION.
--- NOTE | 2025-07-05 17:15 | NUR ---
07/05/[address] ASHLEY, SEE ANESTHESIA RECORDS.
--- NOTE | 2025-07-05 17:43 | NUR ---
TRANSFER NOTE: PT TRANSFERED TO ICU FOLLOWING EGD PROCEDURE. REPORT GIVEN AT BEDSIDE TO DENVER MURCIA. FAMILY UPDATED AND BROUGHT TO ICU. ALL BELONGINGS WITH PT AND FAMILY.
[2025-07-05] MEDS ORDERED: Ipratropium/Albuterol SulF 2.5-0.5MG/3 ML Amp INH SCH (18:00)
--- NOTE | 2025-07-05 18:06 | NUR ---
ASSUMED CARE / SHIFT SUMMARY PT ARRIVED TO UNIT FROM OR VIA GURNEY, ESCORTED BY OR STAFF, AT APPROXIMATELY 1715. ON 10LPM VIA OXIMASK, O2 SATURATION AT 100%, TITRATED DOWN TOLERATED TO 5LPM O2 WITH CURRENT SATURATION AT 97%. PRBC INFUSING TO L FOOT. CONTINUOUS CARDIAC MONITORING IN PLACE SHOWS STACH, BP STABLE c MAP > 65. LUNG SOUNDS ARE COARSE WITH EXPIRATORY WHEEZES, DR. WOLFF AWARE - SEE NEW ORDERS. SMALL SMEAR IN ATTENDS c DARK RED BLOOD, RIVERO PATENT AND DRAINING TO GRAVITY. PIV TO L FOOT AND PIV TO LWR INFUSING PRBC'S. WILL CONTINUE TO MONITOR AND REPORT TO ONCOMING RN.
--- NOTE | 2025-07-05 20:59 | NUR ---
UPDATE TRANSFUSION FINISHED @2054.
[2025-07-05] MEDS ORDERED: CefTRIAXone Sodium 1,000 MG in NS 100 ML IV SCH (21:00)
[2025-07-05 23:22] LABS: Hematocrit 28.6 % (33.0-51.0); Hemoglobin 9.2 g/dL (11.5-16.0)
[2025-07-06] VITALS (74 sets, daily range): BP systolic 79–144; BP diastolic 37–91
[2025-07-06 00:02] LABS: Anion Gap 11.0 mmol/L (3-11); Blood Urea Nitrogen 71.0 mg/dL (8-24); CO2, Blood 23.0 mmol/L (21-32); Calcium, Blood 8.0 mg/dL (8.5-10.1); Chloride, Blood 104.0 mmol/L (98-108); Creatinine, Blood 1.62 mg/dL (0.40-1.00); Glucose, Blood 112.0 mg/dL (70-99); Potassium, Blood 4.7 mmol/L (3.5-5.5); Sodium, Blood 133.0 mmol/L (136-145)
[2025-07-06 03:22] LABS: BASOPHILS ABSOLUTE AUTO 0.08 K/mm3 (0.00-0.23); BASOPHILS PERCENT AUTO 1 % (0-2); EOSINOPHILS ABSOLUTE AUTO 0.16 K/mm3 (0.00-0.68); EOSINOPHILS PERCENT AUTO 1 % (0-6); Hematocrit 28.9 % (33.0-51.0); Hemoglobin 9.2 g/dL (11.5-16.0); IMMATURE GRAN ABSOLUTE AUTO 0.56 K/mm3 (0.00-0.10); IMMATURE GRAN PERCENT AUTO 4 % (0-1); LYMPHOCYTES ABSOLUTE AUTO 0.97 K/mm3 (0.84-5.20); LYMPHOCYTES PERCENT AUTO 7 % (21-46); MONOCYTES ABSOLUTE AUTO 0.89 K/mm3 (0.16-1.47); MONOCYTES PERCENT AUTO 6 % (4-13); Mean Corpuscular HGB Conc 31.8 g/dL (31.5-36.5); Mean Corpuscular Volume 83 fL (80-100); NEUTROPHILS ABSOLUTE AUTO 11.29 K/mm3 (1.96-9.15); NEUTROPHILS PERCENT AUTO 81 % (41-73); NRBC ABSOLUTE 0.00 K/mm3 (0.00-0.02); NRBC Auto 0.0 /100 WBC (0.0-0.2); Platelet Count 466 K/mm3 (150-400); RDW Coefficient Variation 17.2 % (11.7-14.2); RDW Standard Deviation 52.1 fL (35.1-46.3)
[2025-07-06 03:38] LABS: Albumin, Blood 1.9 g/dL (3.4-5.0); Anion Gap 13 mmol/L (3-11); Blood Urea Nitrogen 72 mg/dL (8-24); CO2, Blood 22 mmol/L (21-32); Calcium, Blood 8.0 mg/dL (8.5-10.1); Chloride, Blood 104 mmol/L (98-108); Creatinine, Blood 1.60 mg/dL (0.40-1.00); Glucose, Blood 110 mg/dL (70-99); Phosphorus, Blood 5.9 mg/dL (2.5-4.9); Potassium, Blood 4.6 mmol/L (3.5-5.5); Sodium, Blood 134 mmol/L (136-145)
--- NOTE | 2025-07-06 05:58 | NUR ---
SHIFT SUMMARY PATIENT OPENS EYES BUT DOES NOT TRACK ANYTHING. PATIENT LIKES HEAD TO LEFT AND STARES OFF TO UPPER LEFT SIDE. AFERIBLE THROUGH OUT SHIFT. RIGHT SIDE DEFICIT UPPER AND LOWER EXTERMITIES. MOVES LEFT ARM UP AND DOWN. BILATERAL LUNGS COARSE AND WHEEZES THROUGH OUT. HR 100-100'S AND SBP 100-110'S. PATIENBT ON ROOM AIR SATTING HIGH 90'S. PATIENT HAS RIVERO DRAINING TO GRAVITY AND HAS DEPENDS ON FOR INCOT OF BM. PATIENT WAS RECIEVING BLOOD WHEN SHIFT STARTED AND TOLERATED WELL THE LAST 200CC, SEE TRANSFUSION DOCUMENTATION. PATIENT HAS LEFT FOOT AND LEFT AC PERIPHERAL (CHARGE NURSE AWARE). CALL LIGHT WITHIN REACH.
[2025-07-06] MEDS ORDERED: NS 1,000 ML IV SCH (07:00)
--- NOTE | 2025-07-06 07:15 | NUR ---
ASSUMED CARE OF PATIENT AT APPROXIMATELY 0700. BEDISDE REPORT RECEIVED FROM DIVINA AGGARWAL. PT AWAKE IN BED, OPENING EYES BUT NOT TRACKING OR MAKING PURPOSEUL MOVEMENTS, APHASIC. CONTINUOUS CARDIAC MONITORING IN PLACE. ON RA c O2 SATURATION > 92%. RIVERO PATENT AND DRAINING TO GRAVITY. PIV TO L FOOT AND LAC SALINE LOCKED. SEE SHIFT ASSESSMENT FOR FULL DETAILS.
[2025-07-06] MEDS ORDERED: Metoprolol Tartrate 1 MG/ML 5 ML VIAL IV PRN (08:15)
[2025-07-06] MEDS ORDERED: FentaNYL Citrate 50 MCG/ML 2 ML Injection IV ONE (13:05)
[2025-07-06 13:19] LABS: Hematocrit 27.7 % (33.0-51.0); Hemoglobin 8.9 g/dL (11.5-16.0)
--- NOTE | 2025-07-06 17:14 | NUR ---
SHIFT SUMMARY THROUGHOUT SHIFT PT HAS BEGUN TRACKING PEOPLE WITH HER EYES. WHEN ASKED TO OPEN HER MOUTH FOR ORAL CARE SHE DOES SO, BUT DOES NOT FOLLOW OTHER COMMANDS. AFEBRILE. SCHEDULED FENTANYL GIVEN ORDERED. CONTINUOUS CARDIAC MONITORING IN PLACE SHOWS STACH, 2 DOSES OF PRN METOPROLOL GIVEN INDICATED c GOOD BENEFIT. BP STABLE c MAP > 65. ON RA c O2 SATURATION > 92%. 2 SMALL BM'S THIS SHIFT, DARK IN COLOR. RIVERO PATENT AND DRAINING TO GRAVITY. SERIAL H+H's ORDERED PER GI. PG TO MEAGHAN INFUSING NS AT 100 mL/HR. PIV TO L FOOT SALINE LOCKED. FAMILY AT BEDSIDE, UPDATED ON PLAN OF CARE. WILL CONTINUE TO MONITOR AND REPORT TO ONCOMING RN.
[2025-07-06] MEDS ORDERED: FentaNYL Citrate 50 MCG/ML 2 ML Injection IV PRN ×2 (17:35→20:00)
[2025-07-06 18:30] LABS: Hematocrit 27.7 % (33.0-51.0); Hemoglobin 8.9 g/dL (11.5-16.0)
[2025-07-07] VITALS (53 sets, daily range): BP systolic 96–147; BP diastolic 31–109
[2025-07-07 00:12] LABS: Hematocrit 26.9 % (33.0-51.0); Hemoglobin 8.6 g/dL (11.5-16.0)
[2025-07-07] MEDS ORDERED: Ipratropium/Albuterol SulF 2.5-0.5MG/3 ML Amp INH PRN (02:00)
[2025-07-07 03:17] LABS: Hematocrit 27.1 % (33.0-51.0); Hemoglobin 8.8 g/dL (11.5-16.0); Mean Corpuscular HGB Conc 32.5 g/dL (31.5-36.5); Mean Corpuscular Volume 84 fL (80-100); NRBC ABSOLUTE 0.00 K/mm3 (0.00-0.02); NRBC Auto 0.0 /100 WBC (0.0-0.2); Platelet Count 537 K/mm3 (150-400); RDW Coefficient Variation 17.2 % (11.7-14.2); RDW Standard Deviation 52.7 fL (35.1-46.3)
[2025-07-07 04:04] LABS: Magnesium, Blood 2.5 mg/dL (1.6-2.4)
[2025-07-07 04:23] LABS: Alanine Aminotransfer (ALT/SGP 30.0 U/L (12-78); Albumin, Blood 1.9 g/dL (3.4-5.0); Albumin/Globulin Ratio 0.7 (0.8-1.8); Anion Gap 10.0 mmol/L (3-11); Aspartate Aminotrans (AST/SGOT 35.0 U/L (12-37); Bilirubin, Total 0.2 mg/dL (0.1-1.0); Blood Urea Nitrogen 64.0 mg/dL (8-24); CO2, Blood 24.0 mmol/L (21-32); Calcium, Blood 7.9 mg/dL (8.5-10.1); Chloride, Blood 109.0 mmol/L (98-108); Creatinine, Blood 1.57 mg/dL (0.40-1.00); Globulin, Blood 2.9 g/dL (2.2-4.0); Glucose, Blood 120.0 mg/dL (70-99); Potassium, Blood 4.2 mmol/L (3.5-5.5); Sodium, Blood 139.0 mmol/L (136-145); Total Protein, Blood 4.8 g/dL (6.4-8.2)
--- NOTE | 2025-07-07 05:28 | NUR ---
SHIFT SUMMARY PATIENT IS ALERT AND WILL TRACK NURSE WITH EYES. PATIENT DID SHAKE HEAD FOR YES WHEN ASKED IF IN PAIN. PATIENT WILL YELL OUT IN MOANING SOUNDS. PATIENT HAS REIGHT SIDE DEFICITS IN UPPER ND LOWER EXTERMITIES AND LEFT LOWER EXTERMITIE. PATIENT DOES MOVE LEFT ARM AND HEAD AROUND. PATIENT AFERIBLE THROUGH SHIFT. LUNGS SOUND BILATERAL CLEAR IN UPPER LOBES AND DIMINISHED IN LOER LOBES. PATIENT ON RA SATTING 95%. HR IN THE 100'S AND SBP 110-120'S. PATIENT HAS RIVERO DRAINING TO GRAVITY. HAS POWERGLIDE IN RIGHT UPPER RM AND A LEFT FOOT PERIPHERAL BOTH SALINE LOCKED. CALL LIGHT WITH IN REACH.
[2025-07-07 08:34] LABS: MMA S/P,VITAMIN B12 STATUS 0.4 umol/L (0.00-0.40)
[2025-07-07 09:17] LABS: Hematocrit 27.3 % (33.0-51.0); Hemoglobin 8.6 g/dL (11.5-16.0)
--- NOTE | 2025-07-07 09:19 | NUR ---
ASSUMPTION OF CARE ASSUMED CARE OF PATIENT AT APPROX 0700. PATIENT ALERT, SMILES, AND TRACKS PEOPLE WITH EYES. PATIENT LAST NIH 24. HR SINUS TACH/VENT TRIGEMINY IN THE 110S. BP STABLE WITH MAPS >65. PATIENT ON RA WITH SPO2 >95%. RIVERO PATENT AND DRAINING YELLOW URINE TO GRAVITY. PATIENT MEDICATED WITH FENTANYL FOR PAIN PER EMAR. FAMILY AT BEDSIDE SPOKE WITH DR HULL ABOUT PLAN OF CARE AND GOING TO [facility] IN [facility]. CALL LIGHT NEAR. BED IN LOWEST POSITION.
[2025-07-07] MEDS ORDERED: FentaNYL Citrate 50 MCG/ML 2 ML Injection IV PRN (10:15)
[2025-07-07 11:42] LABS: Anti-Xa UFH, PHA Monitoring <0.10 IU/mL; Prothrombin Time Results 11.3 Sec (9.7-11.5)
[2025-07-07] MEDS ORDERED: FentaNYL Citrate 50 MCG/ML 2 ML Injection IV SCH (12:00)
[2025-07-07] MEDS ORDERED: Heparin Sodium,Porcine/0.5 NS 500 ML IV SCH (12:05)
--- NOTE | 2025-07-07 17:39 | NUR ---
SHIFT SUMMARY PATIENT ALERT AND FOLLOWS SOME COMMANDS. PATIENT TRACKS PEOPLE IN THE ROOM AND SMILES AT FAMILY. PATIENT TOLD BROTHER "I LOVE YOU" TODAY. LAST NIH 24. HR SINUS TACH IN THE 100S-110S. BP STABLE WITH MAPS >65. PATIENT ON ROOM AIR WITH SPO2 >94%. TEMP RIVERO PATENT AND DRAINING YELLOW URINE TO GRAVITY. PATIENT HAD INCONT BM X1 TODAY. PATIENT WAS MEDICATED PER EMAR WITH FENTANYL FOR PAIN. PG TO MEAGHAN PATENT AND INFUSING HEPARIN GTT PER EMAR. PIV TO LEFT FOOT PATENT AND SALINE LOCKED. PATIENT UP TO CHAIR WITH LIFT TODAY, TOLERATED WELL. FAMILY AT BEDSIDE UPDATED ON PLAN OF CARE. CALL LIGHT IN REACH. BED IN LOWEST POSITION. DR ASTORGA SAW PATIENT AND PLANS TO DO A PEG TUBE MED WEEK.
[2025-07-07] MEDS ORDERED: Dose Adjust by Pharmacy XX STA (18:25)
[2025-07-08] VITALS (10 sets, daily range): BP systolic 138–163; BP diastolic 58–88
[2025-07-08 01:38] LABS: BASOPHILS ABSOLUTE AUTO 0.06 K/mm3 (0.00-0.23); BASOPHILS PERCENT AUTO 0 % (0-2); EOSINOPHILS ABSOLUTE AUTO 0.10 K/mm3 (0.00-0.68); EOSINOPHILS PERCENT AUTO 1 % (0-6); Hematocrit 27.1 % (33.0-51.0); Hemoglobin 8.5 g/dL (11.5-16.0); IMMATURE GRAN ABSOLUTE AUTO 0.59 K/mm3 (0.00-0.10); IMMATURE GRAN PERCENT AUTO 4 % (0-1); LYMPHOCYTES ABSOLUTE AUTO 0.91 K/mm3 (0.84-5.20); LYMPHOCYTES PERCENT AUTO 6 % (21-46); MONOCYTES ABSOLUTE AUTO 0.99 K/mm3 (0.16-1.47); MONOCYTES PERCENT AUTO 7 % (4-13); Mean Corpuscular HGB Conc 31.4 g/dL (31.5-36.5); Mean Corpuscular Volume 84 fL (80-100); NEUTROPHILS ABSOLUTE AUTO 11.79 K/mm3 (1.96-9.15); NEUTROPHILS PERCENT AUTO 82 % (41-73); NRBC ABSOLUTE 0.00 K/mm3 (0.00-0.02); NRBC Auto 0.0 /100 WBC (0.0-0.2); Platelet Count 543 K/mm3 (150-400); RDW Coefficient Variation 17.7 % (11.7-14.2); RDW Standard Deviation 53.4 fL (35.1-46.3)
[2025-07-08 01:53] LABS: Anion Gap 11.0 mmol/L (3-11); Blood Urea Nitrogen 56.0 mg/dL (8-24); CO2, Blood 23.0 mmol/L (21-32); Calcium, Blood 8.1 mg/dL (8.5-10.1); Chloride, Blood 112.0 mmol/L (98-108); Creatinine, Blood 1.39 mg/dL (0.40-1.00); Glucose, Blood 110.0 mg/dL (70-99); Magnesium, Blood 2.5 mg/dL (1.6-2.4); Potassium, Blood 3.7 mmol/L (3.5-5.5); Sodium, Blood 142.0 mmol/L (136-145)
[2025-07-08] MEDS ORDERED: Dose Adjust by Pharmacy XX STA ×3 (02:29→16:38)
--- NOTE | 2025-07-08 06:21 | NUR ---
PT UPDATE: REPORT GIVEN TO ROPE CUTTER GENNARO WHO WILL ASSUME CARE OF PT ONCE PT IS TRANSFERRED TO PCU RM 13.
--- NOTE | 2025-07-08 06:36 | NUR ---
PT UPDATE: PT TRANSFERRED TO PCU RM 13 VIA BED BY CAREN RN AND JASEN MURCIA. ALL OF PTS BELONGINGS TRANSFERRED W/PT. PTS DAUGHTER NOTIFIED OF TRANSFER.
--- NOTE | 2025-07-08 07:00 | NUR ---
TRANSFER PT ARRIVED IN PCU 13 FROM ICU AT 0630.PT TRANSFEERED TO BED VIA LIFT SHEET.PT WIDE AWAKE,NONVERBAL.BREATHING EVEN AND NONLABORED.NO S/S OF PAIN/DISCOMFORT NOTED.HEPARIN CONTINUED ORDERED,2RN VERIFIED THE INFUSION RATE PER PROTOCOL.HEPARIN INFUSING AT 14UNITS/KG/HR,16.8ML/HR,WEIGHT 60KG ORDERED BY PHARMACY.RIVERO IN PLACE,PATENT,DRAINING YELLOW URINE.CALL LIGHT AND PT'S ITEMS WITHIN REACH.BED ALARM IN USE FOR FALL PREVENTION SAFETY.MONITORING ONGOING PER PROTOCOL.
[2025-07-08 08:02] LABS: HEPATITIS B SURFACE ANTIBODY <3.10 IU/L; HEPATITIS BE ANTIBODY Negative (Negative); HEPATITIS BE ANTIGEN Negative (Negative)
[2025-07-08] MEDS ORDERED: TPN Consult Notification XX ONE ×2 (09:35→11:40)
[2025-07-08 11:49] LABS: HEPATITIS A ANTIBODY,IGM Negative (Negative)
[2025-07-08 13:01] LABS: PROTHROMBIN F2 G20210A VARIANT Negative; PT PCR SPECIMEN Whole Blood
[2025-07-08 15:19] LABS: FACTOR V LEIDEN F5 R506Q MUTAT Negative; FACV SPECIMEN Whole Blood
[2025-07-08] MEDS ORDERED: Parenteral Electolytes 40 ML,Potassium Phosphate Dibasic 30 MM,Multivitamins 10 ML,ZINC... IV SCH (17:00)
--- NOTE | 2025-07-08 17:48 | NUR ---
REPORT RECEIVED FROM KAMLA Brenner AND CARE ASSUMED. NO CURRENT NEEDS OR CONCERNS NOTED @ THIS TIME. PT IS MOSTLY NON-VERBAL, BUT WILL RESPOND TO SIMPLE QUESTIONS. SHE HAS BEEN TALKING MORE THIS AFTERNOON THAN SHE HAD BEEN PREVIOUSLY. GOOD MOVEMENT TO THE RUE. DAUGHTER @ BEDSIDE. BED IN LOW POSITION, BED ALARM ON, CALL LIGHT AND PERSONAL BELONGINGS IN REACH.
[2025-07-08] MEDS ORDERED: HYDROcodone 5-APAP 325 TAB PO PRN (19:40)
[2025-07-08] MEDS ORDERED: Clarify Drug Order XX ONE (23:30)
[2025-07-09] VITALS (7 sets, daily range): BP systolic 120–160; BP diastolic 70–76
[2025-07-09] MEDS ORDERED: HydrALAZINE HCl 20 MG / ML 1ML Vial IV PRN (01:10)
[2025-07-09 04:28] LABS: BASOPHILS ABSOLUTE AUTO 0.08 K/mm3 (0.00-0.23); BASOPHILS PERCENT AUTO 1 % (0-2); EOSINOPHILS ABSOLUTE AUTO 0.22 K/mm3 (0.00-0.68); EOSINOPHILS PERCENT AUTO 1 % (0-6); Hematocrit 24.0 % (33.0-51.0); Hemoglobin 7.8 g/dL (11.5-16.0); IMMATURE GRAN ABSOLUTE AUTO 1.00 K/mm3 (0.00-0.10); IMMATURE GRAN PERCENT AUTO 7 % (0-1); LYMPHOCYTES ABSOLUTE AUTO 0.99 K/mm3 (0.84-5.20); LYMPHOCYTES PERCENT AUTO 7 % (21-46); MONOCYTES ABSOLUTE AUTO 0.97 K/mm3 (0.16-1.47); MONOCYTES PERCENT AUTO 6 % (4-13); Mean Corpuscular HGB Conc 32.5 g/dL (31.5-36.5); Mean Corpuscular Volume 84 fL (80-100); NEUTROPHILS ABSOLUTE AUTO 12.02 K/mm3 (1.96-9.15); NEUTROPHILS PERCENT AUTO 79 % (41-73); NRBC ABSOLUTE 0.00 K/mm3 (0.00-0.02); NRBC Auto 0.0 /100 WBC (0.0-0.2); Platelet Count 549 K/mm3 (150-400); RDW Coefficient Variation 17.8 % (11.7-14.2); RDW Standard Deviation 53.4 fL (35.1-46.3)
[2025-07-09 04:48] LABS: Alanine Aminotransfer (ALT/SGP 22 U/L (12-78); Albumin, Blood 1.7 g/dL (3.4-5.0); Albumin/Globulin Ratio 0.6 (0.8-1.8); Anion Gap 7 mmol/L (3-11); Aspartate Aminotrans (AST/SGOT 23 U/L (12-37); Bilirubin, Total 0.2 mg/dL (0.1-1.0); Blood Urea Nitrogen 52 mg/dL (8-24); CO2, Blood 26 mmol/L (21-32); Calcium, Blood 7.7 mg/dL (8.5-10.1); Chloride, Blood 106 mmol/L (98-108); Creatinine, Blood 1.19 mg/dL (0.40-1.00); Globulin, Blood 2.9 g/dL (2.2-4.0); Glucose, Blood 146 mg/dL (70-99); Magnesium, Blood 2.3 mg/dL (1.6-2.4); Phosphorus, Blood 2.6 mg/dL (2.5-4.9); Potassium, Blood 3.9 mmol/L (3.5-5.5); Sodium, Blood 135 mmol/L (136-145); Total Protein, Blood 4.6 g/dL (6.4-8.2); Triglycerides 155 mg/dL (30-160)
[2025-07-09] MEDS ORDERED: Dose Adjust by Pharmacy XX STA (05:59)
--- NOTE | 2025-07-09 06:13 | NUR ---
SHIFT SUMMARY PATIENT IS MOSTLY NON VERBAL, DOES RESPOND TO YES/NO QUESTIONS OCCASIONALLY. SINUS TACH 110s. PT HYPERTENSIVE THIS SHIFT, [id number]. CALL PLACED TO MD FOX, ORDERS PLACED FOR PRN HYDRALAZINE IF SBP SUSTAINS >160, HAS NOT NEEDED COVERAGE THIS SHIFT. SPO2> 95% ON ROOM AIR, NO SIGNS OF RESPIRATORY DISTRESS. NO BM THIS SHIFT. RIVERO CATH PATENT AND DRAINING TO GRAVITY. PT PAIN WAS NOT CONTROLLED WITH Q4 FENTANYL, CALL PLACED TO MD FOX WHO STARTED HOME MEDS PREGABALIN AND NORCO. PAIN IS NOW WELL CONTROLLED. WILL GIVE REPORT TO ONCOMING RN. BED LOCKED IN LOWEST POSITION, CALL LIGHT WITHIN REACH.
--- NOTE | 2025-07-09 09:00 | NUR ---
PT IS ALERT BUT NOT ABLE TO ASSESS TO WHAT LEVEL. SHE IS NOT TALKING MUCH, JUST SIMPLE YES AND NO ANSWERS. SHE IS ON RA W/O2 SATS > 92%. SHE IS A 2 PERSON ASSIST FOR TURNS IN BED AND A LIFT FOR OOB. SHE HAS A RIVERO IN PLACE THAT IS DRAINING TO GRAVITY. HEP GTT AND PPN RUNNING PER EMAR. NO NEEDS OR CONCERNS NOTED @ THIS TIME. BED IN LOW POSITION, CALL LIGHT AND PERSONAL BELONGINGS IN REACH.
[2025-07-09 14:29] LABS: HEPATITIS C AB CIA INTERP Negative (Negative); HEPATITIS C ANTIBODY CIA INDEX 0.04 IV
[2025-07-09] MEDS ORDERED: Magnesium Hydroxide Conc 10 ML UDC PO PRN (14:30)
[2025-07-09] MEDS ORDERED: Labetalol HCL 5 MG/ML 4ML Injection (Single Dose) IV PRN (16:35)
--- NOTE | 2025-07-09 18:32 | NUR ---
PT SAT UP IN RECLINER FOR MOST OF THIS SHIFT. HEP GTT AND PPN DISCONTINUED. PT BACK IN BED W/NO NEEDS OR CONCERNS NOTED @ THIS TIME. BED IN LOW POSITION, CALL LIGHT AND PERSONAL BELONGINGS IN REACH.
--- NOTE | 2025-07-09 21:00 | NUR ---
ASSUMED CARE OF PATIENT AT 1900. PATIENT'S DAUGHTER AT BEDSIDE FOR REPORT. PT IS ALERT, UNABLE TO ASSESS ORIENTATION. SHE ANSWERS OCCASIONAL YES/NO QUESTIONS AND OCCASIONALLY RESPONDS IN SIMPLE PHRASES TO FAMILY MEMBERS. SINUS TACH 110s, BP STABLE. SPO2 >95% ON ROOM AIR. ABDOMEN IS SOFT UPON PALPATION. RIVERO CATH PATENT AND DRAINING TO GRAVITY. PATIENT DENIES PAIN AT THIS TIME. BED LOCKED IN LOWEST POSITION, CALL LIGHT WITHIN REACH.
[2025-07-10 04:36] LABS: Hematocrit 24.6 % (33.0-51.0); Hemoglobin 7.8 g/dL (11.5-16.0); Mean Corpuscular HGB Conc 31.7 g/dL (31.5-36.5); Mean Corpuscular Volume 84 fL (80-100); NRBC ABSOLUTE 0.00 K/mm3 (0.00-0.02); NRBC Auto 0.0 /100 WBC (0.0-0.2); Platelet Count 485 K/mm3 (150-400); RDW Coefficient Variation 18.3 % (11.7-14.2); RDW Standard Deviation 55.2 fL (35.1-46.3)
[2025-07-10 05:21] LABS: BAND PERCENT MAN 6 % (0-8); BASOPHILS ABSOLUTE MAN 0.00 K/mm3 (0.00-0.23); BASOPHILS PERCENT MAN 0 % (0-2); EOSINOPHILS ABSOLUTE MAN 0.00 K/mm3 (0.00-0.68); EOSINOPHILS PERCENT MAN 0 % (0-6); LYMPHOCYTES ABSOLUTE MAN 0.39 K/mm3 (0.84-5.20); LYMPHOCYTES PERCENT MAN 3 % (21-46); METAMYELOCYTE ABSOLUTE MAN 0.13 K/mm3 (0.00-0.00); METAMYELOCYTE PERCENT MAN 1 % (0-0); MONOCYTES ABSOLUTE MAN 0.78 K/mm3 (0.16-1.47); MONOCYTES PERCENT MAN 6 % (4-13); MYELOCYTE ABSOLUTE MAN 0.26 K/mm3 (0.00-0.00); MYELOCYTE PERCENT MAN 2 % (0-0); NEUTROPHILS ABSOLUTE MAN 11.51 K/mm3 (1.96-9.15); SEG NEUTROPHILS PERCENT MAN 82 % (41-73)
[2025-07-10 05:29] LABS: Anion Gap 9.0 mmol/L (3-11); Blood Urea Nitrogen 44.0 mg/dL (8-24); CO2, Blood 24.0 mmol/L (21-32); Calcium, Blood 7.7 mg/dL (8.5-10.1); Chloride, Blood 102.0 mmol/L (98-108); Creatinine, Blood 1.19 mg/dL (0.40-1.00); Glucose, Blood 104.0 mg/dL (70-99); Magnesium, Blood 2.1 mg/dL (1.6-2.4); Phosphorus, Blood 2.7 mg/dL (2.5-4.9); Potassium, Blood 4.0 mmol/L (3.5-5.5); Sodium, Blood 131.0 mmol/L (136-145)
--- NOTE | 2025-07-10 06:08 | NUR ---
SHIFT SUMMARY SEE PREVIOUS NOTE. PATIENT ANSWERING YES/NO QUESTIONS MORE FREQUENTLY, OBEYS OCCASIONAL SIMPLE COMMANDS. SINUS TACH 110-120s, ALL OTHER VSS. RIVERO CATH PATENT AND DRAINING TO GRAVITY. NO ACUTE EVENTS THIS SHIFT. BED LOCKED IN LOWEST POSITION AND CALL LIGHT WITHIN REACH. WILL GIVE REPORT TO ONCOMING RN.
[2025-07-10] MEDS ORDERED: CefTRIAXone Sodium 1,000 MG in NS 100 ML IV SCH (09:00)
[2025-07-10] MEDS ORDERED: Octreotide Acetate 500 MCG in NS 250 ML IV SCH (10:25)
[2025-07-10 11:09] VITALS: BP 148/83
[2025-07-10 12:36] LABS: Hematocrit 25.0 % (33.0-51.0); Hemoglobin 8.0 g/dL (11.5-16.0)
[2025-07-10 13:37] LABS: JO-1 HISTIDYL-TRNA SYNTHET,IGG 2 AU/mL (0-40); SMITH/RNP (ENA) AB, IGG 2 Units (0-19); SSA-52 (RO52) (ENA) AB, IGG 2 AU/mL (0-40); SSA-60 (RO60) (ENA) AB, IGG 1 AU/mL (0-40)
[2025-07-10] MEDS ORDERED: Heparin Sodium,Porcine/0.5 NS 500 ML IV SCH (14:00)
[2025-07-10 14:11] LABS: Anti-Xa UFH, PHA Monitoring 0.56 IU/mL
--- NOTE | 2025-07-10 15:41 | NUR ---
SHIFT SUMMARY: PT HAS HAD NO NEW NEURO CHANGES THIS SHIFT. HAS BEEN RESTING WELL BETWEEN ACTIVITIES. WAS IN ALOT OF PAIN THIS AM BUT HAS DENIED ANY PAIN SINCE. WAS ABLE TO WORK WITH THERAPY. ATE ALL MEAL WITHOUT ANY COMPLICATIONS. DAUGHTER AT BEDSIDE MOST OF THE DAY. NO SIGNIFICANT EVENTS HAPPENED DURING THIS SHIFT.
--- NOTE | 2025-07-10 17:39 | NUR ---
TRANSFER OF CARE/SHIFT SUMMARY: ASSUMED CARE AT APPROX 1600, PT ALERT AND ABLE TO COMMUNICATE WITH MINIMAL VERBAL RESPONSES SUCH ANSWERING YES OR BY GESTURE SUCH RAISE YOUR HAND IF YOU ARE IN PAIN, ETC. PT'S DAUGHTER ALMA AT BEDSIDE, PHYSICAL THERAPY WORKED WITH PT, SITTING UP IN BED EATING DINNER WITH AIDE, PT AND DAUGHTER ORIENTED TO CALL LIGHT.
[2025-07-10 20:07] VITALS: BP 136/66
[2025-07-10] MEDS ORDERED: Dose Adjust by Pharmacy XX STA (21:45)
[2025-07-10 23:07] VITALS: BP 108/66
[2025-07-11] VITALS (7 sets, daily range): BP systolic 108–135; BP diastolic 57–78
[2025-07-11 04:07] LABS: Hematocrit 25.2 % (33.0-51.0); Hemoglobin 8.1 g/dL (11.5-16.0); Mean Corpuscular HGB Conc 32.1 g/dL (31.5-36.5); Mean Corpuscular Volume 85 fL (80-100); NRBC ABSOLUTE 0.02 K/mm3 (0.00-0.02); NRBC Auto 0.1 /100 WBC (0.0-0.2); Platelet Count 470 K/mm3 (150-400); RDW Coefficient Variation 18.3 % (11.7-14.2); RDW Standard Deviation 55.8 fL (35.1-46.3)
[2025-07-11 04:30] LABS: Anion Gap 9.0 mmol/L (3-11); Blood Urea Nitrogen 35.0 mg/dL (8-24); CO2, Blood 24.0 mmol/L (21-32); Calcium, Blood 7.4 mg/dL (8.5-10.1); Chloride, Blood 101.0 mmol/L (98-108); Creatinine, Blood 1.32 mg/dL (0.40-1.00); Glucose, Blood 125.0 mg/dL (70-99); Magnesium, Blood 2.0 mg/dL (1.6-2.4); Phosphorus, Blood 3.4 mg/dL (2.5-4.9); Potassium, Blood 4.4 mmol/L (3.5-5.5); Sodium, Blood 130.0 mmol/L (136-145)
[2025-07-11 04:44] LABS: BAND PERCENT MAN 6 % (0-8); BASOPHILS ABSOLUTE MAN 0.14 K/mm3 (0.00-0.23); BASOPHILS PERCENT MAN 1 % (0-2); EOSINOPHILS ABSOLUTE MAN 0.56 K/mm3 (0.00-0.68); EOSINOPHILS PERCENT MAN 4 % (0-6); LYMPHOCYTES % ATYPICAL MANUAL 1 % (0-0); LYMPHOCYTES ABSOLUTE MAN 0.84 K/mm3 (0.84-5.20); LYMPHOCYTES PERCENT MAN 5 % (21-46); METAMYELOCYTE ABSOLUTE MAN 0.42 K/mm3 (0.00-0.00); METAMYELOCYTE PERCENT MAN 3 % (0-0); MONOCYTES ABSOLUTE MAN 0.14 K/mm3 (0.16-1.47); MONOCYTES PERCENT MAN 1 % (4-13); MYELOCYTE ABSOLUTE MAN 0.56 K/mm3 (0.00-0.00); MYELOCYTE PERCENT MAN 4 % (0-0); NEUTROPHILS ABSOLUTE MAN 11.45 K/mm3 (1.96-9.15); SEG NEUTROPHILS PERCENT MAN 75 % (41-73)
[2025-07-11] MEDS ORDERED: Clarify Drug Order XX ONE (05:15)
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
[2025-07-11] MEDS ORDERED: Dose Adjust by Pharmacy XX STA (11:22)
[2025-07-11 12:28] LABS: Stool Occult Blood Guaiac 1 Pos (Neg)
--- NOTE | 2025-07-11 17:33 | NUR ---
SHIFT SUMMARY PT A/OX2 AND COOPERATIVE OF CARE. PT HAS DIFFICULTY EXPRESSING NEEDS DUE TO LIMITED SPEECH. PT ABLE TO ANSWER YES/NO QUESTIONS APPROPIATELY. PT ATTEMPTS TO FOLLOW COMMANDS WITH MOVING EXTREMITIES. PT ABLE TO FOLLOW COMMANDS OF OPENING MOUTH FOR ORAL CARE. PT HR REMAINED IN THE 100'S THIS SHIFT. OTHER VSS THROUGHOUT SHIFT WITH O2 SATS IN THE 90'S ON RA. PT DID NOT ENDORSE CHEST PAIN/PRESSUE. PT DID NOT ENDORSE SOB/DYSPNEA THROUGHOUT SHIFT. RIVERO REMAINED IN PLACE, DRAINING TO GRAVITY, YELLOW URINE NOTED. HEP GTT CONTINUED RUNNING PER EMAR.
--- NOTE | 2025-07-11 21:31 | NUR ---
TRANSFER NOTE REPORT GIVEN TO DIVINA DODD ON MEDICAL FLOOR. PT TRANSFERRED TO [facility] AT APPROX 2125 VIA HOSPITAL BED WITH ALL BELONGINGS. IN A SINUS RHYTHM, ON TELEMETRY, HR 100'S. ON RA, SATS ABOVE 90%.
--- NOTE | 2025-07-11 21:48 | NUR ---
TRANSFER NOTE HANDOFF RECEIVED FROM TIMBER BUCKER KVNG. PT TRANSFERED TO FLOOR VIA GURNEY. PT ORIENTED TO UNIT. PERSONAL BELONGINGS WITH PT. HEPARIN DRIP INFUSING ORDERED. TELEMETRY IN PLACE. TELEMETRY: TACH @ 101 BPM.
--- NOTE | 2025-07-12 04:31 | NUR ---
SHIFT SUMMARY TRANSFERED FROM PCU THIS SHIFT. FULL CODE. ADMITTED FOR CVA. EXPRESSIVE APHASIA REMAINS. BLE FLACCID, RIGHT ARM FLACCID. LIFT PATIENT. STRICT I&O'S. RIVERO IN PLACE. ON RA. POWERGLIDE IN RUE. HEPARIN GTT INFUSING, PHARMACY MANAGED. TELEMETRY: TACH @ 101 BPM. PLAN IS FOR PLACEMENT IN REHAB FACILITY WHEN BED CAN BE FOUND. LOOSE BLACK STOOLS REPORTED, GUAIAC+. HX AFIB, ESOPH VARICES, SVT-POST ABLATION. GI CONSULTED. PALLIATIVE CARE IS CONSULTED.
[2025-07-12 05:32] LABS: Hematocrit 26.1 % (33.0-51.0); Hemoglobin 8.3 g/dL (11.5-16.0); Platelet Count 497 K/mm3 (150-400)
[2025-07-12 05:57] LABS: Anion Gap 10.0 mmol/L (3-11); Blood Urea Nitrogen 38.0 mg/dL (8-24); CO2, Blood 24.0 mmol/L (21-32); Calcium, Blood 7.6 mg/dL (8.5-10.1); Chloride, Blood 99.0 mmol/L (98-108); Creatinine, Blood 1.42 mg/dL (0.40-1.00); Glucose, Blood 108.0 mg/dL (70-99); Potassium, Blood 4.4 mmol/L (3.5-5.5); Sodium, Blood 129.0 mmol/L (136-145)
[2025-07-12] MEDS ORDERED: Dose Adjust by Pharmacy XX STA (06:02)
[2025-07-12 07:36] VITALS: BP 137/73
--- NOTE | 2025-07-12 08:02 | NUR ---
DR. JAMIE DELA CRUZ- SURGEON ROUNDING. STONE WAS TO BIG TO REMOVED, STENT PLACED SUCCESSFULLY. PT WILL DISCHARGE HOME BASED ON HCP DECISION. PT WILL HAVE OUT PATIENT PROCEDURE TO REMOVE STONE AFTER DISCHARGE. RIVERO CAN COME OUT TODAY AND PT CAN RETURN TO NORMAL DIET TOLERATED.
[2025-07-12] MEDS ORDERED: NS 250 ML IV PRN (10:50)
[2025-07-12 12:26] VITALS: BP 98/58
[2025-07-12 16:35] VITALS: BP 130/67
--- NOTE | 2025-07-12 18:00 | NUR ---
SHIFT SUMMARY PATIENT ALERT AND INTERACTIVE ABLE. PATIENT ABLE TO RESPOND WITH 1-4 WORD RESPONSES. PATIENT ABLE TO MOVE L ARM WITH GROSS MOTOR AND SLIGHT WITH RIGHT. PATIENT ABLE TO DO SOME MOVEMENT WITH RIGHT. PATIENT AND FAMILY EDUCATED ON THE IMPORTANCE FOR PATIENT TO DO MUCH POSSIBLE FOR HERSELF. PATIENT WILLING TO MAKE AN EFFORT WITH EXERCISES PROVIDED BY NURSE. THERAPY UNABLE TO WORK WITH PATIENT TODAY BECAUSE PATIENT WAS RESTING. PATIENT UP TO CHAIR THIS EVENING WITH LIFT FOR DINNER. PATIENT ADVANCED TO A SOFT BITE SIZE MEALS AND THIN LIQUIDS. PATIENT CONTINUES TO NEED ASSISTANCE WITH MEALS AND SITTING UPRIGHT FOR ASPIRATION RISK. FAMILY LOOKING INTO REHAB FACILITIES AND REFERALS SENT. PATIENT STARTED ON PO BLOOD THINNERS TODAY AND HEPARIN DC'D.
[2025-07-12 20:21] VITALS: BP 113/58
[2025-07-13 00:52] VITALS: BP 97/63
--- NOTE | 2025-07-13 05:06 | NUR ---
SHIFT SUMMARY A&OX2 TO SELF AND SITUATION. NOT ABLE TO CALL APPROPRIATELY SO PT HAS BEEN CHECKED ON FREQUENTLY. SHE CONTINUES TO HAVE MORE DEFICT IN RIGHT ARM THAN LEFT BUT IS ABLE TO MOVE HER FINGERS ON HER RIGHT HAND. HAVE ENCOURAGED PT USE HER HANDS AND MOVE THEM MUCH POSSIBLE. PT HAS BEEN REPOSITIONED EVERY 2 HOURS. SHE HAS A RIVERO CATHETER PATENT AND DRAINING TO GRAVITY. SHE DID HAVE A BM DURING SHIFT THAT WAS SOFT AND VERY DARK. SHE DID HAVE INCREASED PAIN AT BEGINNING OF SHIFT AND WAS REPOSITIONED AND MEDICATED PER EMAR. THIS APPEARED TO HAVE HELPED PT APPEARED RELAXED AND WAS ABLE TO REST FOR A GOOD PORTION OF THE NIGHT. SHE IS CURRENTLY SLEEPING IN HER BED AT LOWEST POSITION WITH CALL LIGHT WITHIN REACH.
[2025-07-13 05:12] VITALS: BP 104/62
[2025-07-13 07:22] VITALS: BP 118/57
[2025-07-13 08:08] LABS: Hematocrit 25.9 % (33.0-51.0); Hemoglobin 8.3 g/dL (11.5-16.0)
[2025-07-13 08:31] LABS: Anion Gap 9.0 mmol/L (3-11); Blood Urea Nitrogen 39.0 mg/dL (8-24); CO2, Blood 25.0 mmol/L (21-32); Calcium, Blood 7.8 mg/dL (8.5-10.1); Chloride, Blood 99.0 mmol/L (98-108); Creatinine, Blood 1.41 mg/dL (0.40-1.00); Glucose, Blood 102.0 mg/dL (70-99); Potassium, Blood 4.2 mmol/L (3.5-5.5); Sodium, Blood 129.0 mmol/L (136-145)
[2025-07-13 11:58] VITALS: BP 110/60
[2025-07-13 15:44] VITALS: BP 117/60
--- NOTE | 2025-07-13 17:24 | NUR ---
SHIFT SUMMARY PT MEDICATED WITH NORCO TWICE THIS SHIFT. SEE EMAR. PT UP TO CHAIR USING MECHANICAL LIFT. PT WORKED WITH PHYSICAL THERAPY TODAY. REPOSITIONED Q2H TODAY. BED BATH COMPLETED TODAY. RIVERO REMOVED TODAY. NO VOID NOTED YET. NO OTHER ACUTE CHANGES IN ASSESSMENT AT THIS TIME. VS REVIEWED. CALL LIGHT IN REACH.
[2025-07-13 19:53] VITALS: BP 104/59
[2025-07-14] VITALS (8 sets, daily range): BP systolic 91–117; BP diastolic 52–87
[2025-07-14 05:50] LABS: Hematocrit 24.6 % (33.0-51.0); Hemoglobin 8.0 g/dL (11.5-16.0)
[2025-07-14 06:18] LABS: Anion Gap 9.0 mmol/L (3-11); Blood Urea Nitrogen 43.0 mg/dL (8-24); CO2, Blood 26.0 mmol/L (21-32); Calcium, Blood 7.7 mg/dL (8.5-10.1); Chloride, Blood 100.0 mmol/L (98-108); Creatinine, Blood 1.66 mg/dL (0.40-1.00); Glucose, Blood 103.0 mg/dL (70-99); Potassium, Blood 4.4 mmol/L (3.5-5.5); Sodium, Blood 131.0 mmol/L (136-145)
--- NOTE | 2025-07-14 06:37 | NUR ---
SHIFT SUMMARY A&OX2 TO SELF AND SITUATION. NOT ABLE TO CALL APPROPRIATELY SO REQUIRES FREQUENT CHECKING IN. APPEARS TO SOMETIMES NOT WANT TO RESPOND AND OTHER TIMES RESPONDS WITH 1-2 WORD ANSWERS. PT REPOSITIONED Q 2 HOURS. PT WAS NOT ABLE TO VOID ON HER OWN. MULTIPLE CHECKS WITH BLADDER SCANNER RESULTING IN LARGE AMOUNT OF RETENTION. CALLED HOSPITALIST AND RECEIVED AN ORDER TO STRAIGHT CATH PT AND RECHECK IN 6 HOURS. STRAIGHT CATH PERFORMED AND 1000 MLS URINE WAS DRAINED. PT STATED SHE FELT BETTER. CURRENTLY PT IS SLEEPING IN BED AT LOWEST POSITION WITH CALL LIGHT WITHIN REACH.
[2025-07-14] MEDS ORDERED: Saline Nasal Spray 45 ML PRN (10:10)
--- NOTE | 2025-07-14 16:45 | NUR ---
SHIFT SUMMARY PT C/O OFTEN T/O THE DAY. REPOSITIONING OFTEN HELPS WITH THIS. ALSO MEDICATED PER EMAR. PT GOT UP TO CHAIR FOR LUNCH TODAY AND STAYED UP FOR APPROX 2 HOURS. BLACK TARRY SMEARS T/O THE DAY. PT HAD TO BE STRAIGHT CATHED ONCE TODAY FOR RETENTION. LAST BLADDER SCAN WAS 281. PT STATES SHE DOES NOT FEEL THE URGE TO URINATE AT ALL. NO OTHER ACUTE CHANGES IN ASSESSMENT AT THIS TIME. VS REVIEWED. COREG HELD THIS AM AND AFTERNOON DUE TO SOFT BLOOD PRESSURES. FAMILY AT BEDSIDE T/O THE DAY. NO OTHER CHANGES IN ASSESSMENT AT THIS TIME. DENIES OTHER NEEDS AT THIS TIME.
--- NOTE | 2025-07-14 18:32 | NUR ---
REQUEST FROM DAUGHTER, ALMA, TO HAVE THE DR. OR DISCHARGE PLANNING TO CALL HER TOMORROW MORNING. ALMA STATES THAT SHE PREFERS THE PT GO TO [facility] AND HAS CALLS OUT TO THIS FACILITY. PREFERS NOT TO HAVE THE PATIENT AT [facility] OR [facility].
[2025-07-15 04:34] VITALS: BP 110/66
[2025-07-15 05:39] LABS: Hematocrit 26.2 % (33.0-51.0); Hemoglobin 8.2 g/dL (11.5-16.0); Mean Corpuscular HGB Conc 31.3 g/dL (31.5-36.5); Mean Corpuscular Volume 87 fL (80-100); NRBC ABSOLUTE 0.00 K/mm3 (0.00-0.02); NRBC Auto 0.0 /100 WBC (0.0-0.2); Platelet Count 448 K/mm3 (150-400); RDW Coefficient Variation 19.5 % (11.7-14.2); RDW Standard Deviation 62.2 fL (35.1-46.3)
[2025-07-15 06:01] LABS: Anion Gap 11.0 mmol/L (3-11); Blood Urea Nitrogen 44.0 mg/dL (8-24); CO2, Blood 25.0 mmol/L (21-32); Calcium, Blood 7.9 mg/dL (8.5-10.1); Chloride, Blood 100.0 mmol/L (98-108); Creatinine, Blood 1.59 mg/dL (0.40-1.00); Glucose, Blood 112.0 mg/dL (70-99); Potassium, Blood 4.6 mmol/L (3.5-5.5); Sodium, Blood 131.0 mmol/L (136-145)
--- NOTE | 2025-07-15 06:10 | NUR ---
PT WAS UNABLE TO ANSWER ASSESSMENT QUESTIONS. PT DID ANSWER SOME QUESTIONS. PT HAS NOT VOIDED THIS SHIFT WAS BLADDER SCANNED SHOWED 542 ML 16 FR RIVERO PLACED USING STERILE TECHNIQUE WITHOUT DIFFICULTY AND PATIENT DRAINED 700 ML OF CLEAR YELLOW URINE. THIS WAS PATIENTS 3RD BLADDER SCAN AND CATH WITHOUT PATIENT VOIDING. PT C/0 PAIN DURING THIS SHIFT AND MAIN MEDICATION GIVEN RX, PT REPOSITIONED AND SHE REPORTED PAIN WAS RELIEVED. PT HAD SMALL BLACK TARRY BM.
[2025-07-15 06:22] LABS: BAND PERCENT MAN 5 % (0-8); BASOPHILS ABSOLUTE MAN 0.20 K/mm3 (0.00-0.23); BASOPHILS PERCENT MAN 2 % (0-2); EOSINOPHILS ABSOLUTE MAN 0.30 K/mm3 (0.00-0.68); EOSINOPHILS PERCENT MAN 3 % (0-6); LYMPHOCYTES ABSOLUTE MAN 0.41 K/mm3 (0.84-5.20); LYMPHOCYTES PERCENT MAN 4 % (21-46); METAMYELOCYTE ABSOLUTE MAN 0.10 K/mm3 (0.00-0.00); METAMYELOCYTE PERCENT MAN 1 % (0-0); MONOCYTES ABSOLUTE MAN 0.61 K/mm3 (0.16-1.47); MONOCYTES PERCENT MAN 6 % (4-13); NEUTROPHILS ABSOLUTE MAN 8.64 K/mm3 (1.96-9.15); SEG NEUTROPHILS PERCENT MAN 79 % (41-73)
[2025-07-15 07:17] VITALS: BP 118/70
[2025-07-15 15:40] VITALS: BP 107/60
--- NOTE | 2025-07-15 18:10 | NUR ---
SHIFT SUMMARY PATIENT IS ABLE TO STATE HER NAME AND TODAY, THOUGH RESPONSES ARE SLOW. SHE COULD REPEAT BACK NURSES NAME, SWALLOWS PILLS IN APPLESAUCE AND DRINKING REGULAR THIN LIQUIDS WELL. FLACC SCORE INDICATED SHE WAS PAINFUL AND SO SHE WAS MEDICATED PER EMAR. TELE HAS BEEN DC'D. SHE IS ON ROOM AIR. SHE HAS BEEN VISITED BY FAMILY TODAY. SHE IS USING HER RIGHT ARM MORE TODAY AND IS ABLE TO FOLLOW COMMANDS MOST OF THE TIME. B/L LE REMAIN VERY FLACCID. SHE IS STILL A LIFT FOR MOVEMENT. PLANS TO DC TO [facility]. HER BED IS LOW AND LOCKED, MORE FREQUENT ROUNDING.
[2025-07-15 20:32] VITALS: BP 108/62
[2025-07-16 03:21] VITALS: BP 127/70
--- NOTE | 2025-07-16 05:15 | NUR ---
SHIFT SUMMARY A&O TO SELF, PERSON, PLACE, SITUATION. FLACCID R LEG, MINIMAL R HAND RAG INSPECTOR STR. WEAK LUE/LLE. SANDY LIFT + 2P MAX ASSIST FOR Q2H TURN AND BRIEF CHANGE. X1 DARK LOOSE BM THIS EVENING. MEPILEX REMOVED FROM COCCYX, AND ZINC OXIDE BARRIER CREAM APPLIED TO BLANCHING ERYTHEMA W/O SKIN BREAKDOWN. PT ACCEPTED TO SNF IN [place], OR, PENDING INSURANCE APPROVAL. RIVERO CATHETER DRAINING CLEAR LIGHT YELLOW URINE TO GRAVITY. PT MISSED EVENING MEDS DUE TO DEEP SLEEP. MEDICATED FOR ANALGESIA PER EMAR ONCE AWAKE IN EARLY AM. TOLERATING PO THIN LIQUIDS WITH STRAW, AND MEDS WHOLE IN APPLESAUCE. POWERGLIDE PATENT IN [place].
[2025-07-16 06:51] LABS: BASOPHILS ABSOLUTE AUTO 0.04 K/mm3 (0.00-0.23); BASOPHILS PERCENT AUTO 0 % (0-2); EOSINOPHILS ABSOLUTE AUTO 0.12 K/mm3 (0.00-0.68); EOSINOPHILS PERCENT AUTO 1 % (0-6); Hematocrit 25.4 % (33.0-51.0); Hemoglobin 8.0 g/dL (11.5-16.0); IMMATURE GRAN ABSOLUTE AUTO 0.42 K/mm3 (0.00-0.10); IMMATURE GRAN PERCENT AUTO 4 % (0-1); LYMPHOCYTES ABSOLUTE AUTO 1.49 K/mm3 (0.84-5.20); LYMPHOCYTES PERCENT AUTO 15 % (21-46); MONOCYTES ABSOLUTE AUTO 0.91 K/mm3 (0.16-1.47); MONOCYTES PERCENT AUTO 9 % (4-13); Mean Corpuscular HGB Conc 31.5 g/dL (31.5-36.5); Mean Corpuscular Volume 87 fL (80-100); NEUTROPHILS ABSOLUTE AUTO 7.09 K/mm3 (1.96-9.15); NEUTROPHILS PERCENT AUTO 70 % (41-73); NRBC ABSOLUTE 0.00 K/mm3 (0.00-0.02); NRBC Auto 0.0 /100 WBC (0.0-0.2); Platelet Count 417 K/mm3 (150-400); RDW Coefficient Variation 19.4 % (11.7-14.2); RDW Standard Deviation 61.0 fL (35.1-46.3)
[2025-07-16 07:07] LABS: Anion Gap 7.0 mmol/L (3-11); Blood Urea Nitrogen 41.0 mg/dL (8-24); CO2, Blood 28.0 mmol/L (21-32); Calcium, Blood 7.7 mg/dL (8.5-10.1); Chloride, Blood 99.0 mmol/L (98-108); Creatinine, Blood 1.55 mg/dL (0.40-1.00); Glucose, Blood 112.0 mg/dL (70-99); Potassium, Blood 4.4 mmol/L (3.5-5.5); Sodium, Blood 130.0 mmol/L (136-145)
[2025-07-16 07:41] VITALS: BP 111/61
[2025-07-16 15:11] VITALS: BP 96/72
--- NOTE | 2025-07-16 17:41 | NUR ---
SHIFT SUMMARY PATIENT STATED HER NAME AND TODAY WITH SLOW RESPONSES. SWALLOWS PILLS WHOLE IN APPLE SAUCE, CONTINUES TO INTAKE REGULAR THIN LIQUIDS WITHOUT DIFFICULTY. REQUIRED TOTAL ASSISTANCE WITH PT WHEN SHE WAS SAT UP ON THE SIDE OF THE BED TODAY. SHE IS ON ROOM AIR, INCONTINENT OF BOWELS. RIVERO IN PLACE FOR RETENTION AND DRAINING LIGHT YELLOW CLEAR URINE TO GRAVITY. B/L LE REMAIN FLACCID. PLAN IS TO DC TO [place] FOR SNF. HER BED IS LOW AND LOCKED. FAMILY IS PRESENT IN THE ROOM.
[2025-07-16 20:21] VITALS: BP 106/72
[2025-07-17 03:33] VITALS: BP 136/65
--- NOTE | 2025-07-17 06:34 | NUR ---
SHIFT SUMMARY PT A&O TO SELF AND PLACE, UNABLE TO ASSESS TIME AND PLACE DUE TO APHASIA. PT ABLE TO GIVE ONE WORD ANSWERS AND IS SLOW TO RESPOND. PT MEDICATED PER EMAR FOR PAIN. VSS, NO COMPLAINTS OF CP/PRESSURE OR SOB. PT SPENT MOST OF HSIFT RESTING IN BED WITH EYES CLOSED AND RESPIRATIONS EVEN AND UNLABORED. PT CATHETER IN PLACE AND DRAINING TO GRAVITY. CATH CARE PROVIDED. PT KEPT IN POSITION OF SAFETY WITH FALL PRECAUTIONS IN PLACE, CALL LIGHT IN REACH.
[2025-07-17 07:55] VITALS: BP 117/70
[2025-07-17] MEDS ORDERED: ELIQUIS5 M2 PO (11:21)
[2025-07-17] MEDS ORDERED: CARV6.25 PO (11:23)
[2025-07-17] MEDS ORDERED: DOCU100 PO (11:24)
[2025-07-17] MEDS ORDERED: PANT40 PO (11:25)
[2025-07-17] MEDS ORDERED: DULCOLAX400 MG/5 M PO (11:25)
[2025-07-17] MEDS ORDERED: MIRALAX17 GM PO (11:26)
[2025-07-17] MEDS ORDERED: ENTRESTO 24 MG1 EACH PO (11:27)
[2025-07-17] MEDS ORDERED: SENN187 PO (11:27)
[2025-07-17] MEDS ORDERED: SPIR25 PO (11:29)
[2025-07-17] MEDS ORDERED: NASAL SPRAY44 M1 (11:29)
[2025-07-17] MEDS ORDERED: JARDIANCE10 MG PO (11:30)
--- NOTE | 2025-07-17 13:31 | NUR ---
1320 DISCHARGE SUMMARY PATIENT DISCHARGED TO SNF IN [place]. PATIENT LEFT BY MEDICAL TRANSPORT, THE PATIENTS DAUGHTER GATHERED ALL OF THE PATIENTS BELONGINGS AND TOOK THEM WITH HER. THE PATIENT LEFT BY RECLINING WHEELCHAIR, SHE LEFT IN A STABLE CONDITION. REPORT IS CALLED TO [facility] AT [id number]. ALL LINES REMOVED INTACT.
--- NOTE | 2025-07-17 14:10 | NUR ---
1338 FACILITY IN [facility] CALLED, REPORT GIVEN TO DIVINA NEUMANN. ADVISED THIEN THAT THIS RN ACCIDENTALLY FORGOT TO REMOVE POWERGLIDE. THIEN ADVISED HE WOULD REMOVE THIS UPON HER ARRIVAL.
== END 2025-07-17 13:40 | DRG 64 ==
LOC: ER 12:24 → MEDS 12:25 → ER 12:25 → MEDS 12:25 → ICUE 07-01 16:36 → PCU 07-01 16:36 → MEDS 07-01 16:36 → PCU 07-04 14:10 → ICUE 07-05 17:12 → PCU 07-08 06:26 → MEDS 07-11 21:25
PROVIDERS: Family Medicine; Internal Medicine; Registered Nurse; Student in an Organized Health Care Education/Training Program; ADMIT Hospitalist
PROC: 06L38ZZ Occlusion of Esophageal Vein, Via Natural or Artificial Opening Endoscopic (ICD-10-PCS; 2025-07-01)
PROC: 02HV33Z Insertion of Infusion Device into Superior Vena Cava, Percutaneous Approach (ICD-10-PCS; 2025-07-05)
PROC: 3E03329 Introduction of Other Anti-infective into Peripheral Vein, Percutaneous Approach (ICD-10-PCS; 2025-07-05)
PROC: 30233N1 Transfusion of Nonautologous Red Blood Cells into Peripheral Vein, Percutaneous Approach (ICD-10-PCS; principal; 2025-07-05 16:00)
PROC: 0T2BX0Z Change Drainage Device in Bladder, External Approach (ICD-10-PCS; 2025-07-08)
PROC: 3E0336Z Introduction of Nutritional Substance into Peripheral Vein, Percutaneous Approach (ICD-10-PCS; 2025-07-09)
DX: I63.412 Cerebral infarction due to embolism of left middle cerebral artery (principal); I85.11 Secondary esophageal varices with bleeding; E87.1 Hypo-osmolality and hyponatremia; I50.20 Unspecified systolic (congestive) heart failure; G81.91 Hemiplegia, unspecified affecting right dominant side; D62 Acute posthemorrhagic anemia; N17.9 Acute kidney failure, unspecified; I48.92 Unspecified atrial flutter; E46 Unspecified protein-calorie malnutrition; K76.6 Portal hypertension; R47.01 Aphasia; J45.909 Unspecified asthma, uncomplicated; R00.0 Tachycardia, unspecified; I11.0 Hypertensive heart disease with heart failure; R29.705 NIHSS score 5; D72.829 Elevated white blood cell count, unspecified; R53.1 Weakness; G62.9 Polyneuropathy, unspecified; R29.728 NIHSS score 28; G89.29 Other chronic pain; R13.10 Dysphagia, unspecified; R33.8 Other retention of urine; I48.0 Paroxysmal atrial fibrillation; Z87.891 Personal history of nicotine dependence; Z74.01 Bed confinement status; Z79.51 Long term (current) use of inhaled steroids; Z90.49 Acquired absence of other specified parts of digestive tract; Z90.710 Acquired absence of both cervix and uterus; Z98.890 Other specified postprocedural states; Z79.899 Other long term (current) drug therapy; Z88.5 Allergy status to narcotic agent; Z88.8 Allergy status to other drugs, medicaments and biological substances; Z68.26 Body mass index [BMI] 26.0-26.9, adult
CPT/HCPCS: 36415; 51702; 70450; 70496; 70498; 70551; 71045; 76700; 80048; 80053; 80061; 80069; 81001; 81240; 81241; 82085; 82272; 82607; 82728; 82746; 82947; 83036; 83090; 83516; 83516-59; 83540; 83550; 83605; 83615; 83735; 83880; 83921; 84100; 84182; 84182-59; 84478; 85014; 85018; 85025; 85027; 85049; 85520; 85610; 85651; 85730; 86037; 86038; 86039; 86140; 86160; 86235; 86235-59; 86430; 86431; 86592; 86707; 86709; 86803; 86850; 86900; 86901; 86923; 87086; 87340; 87350; 87637; 92507; 92523; 92526; 92610; 93005; 93010; 93306; 93975; 94640; 94664; 94760; 94762; 96361; 96372; 96374; 96375; 97110; 97112; 97162; 97167; 97168; 97530; 97535; 99285-25; A6590; A9270; C1751; G0378; J0696; J1171; J1644; J1650; J1885; J2250; J2354; J2371; J2405; J2470; J2704; J2765; J2916; J3010; J3480; J7030; J7040; J7050; J7120; P9016; P9612; Q9967